=== PATIENT | male | born 1955 | race Caucasian/White ===

== ENCOUNTER → 2017-01-20 | Day surgery (SDC) | payer OTHER ==
[~2017-01-20] VITALS: Ht 172.7 cm; Wt 83.1 kg
[~2017-01-20] MED LIST: ACETAMINOPHEN 325 MG TAB PO PRN; ASPI81TA28 PO; ATOR-22 PO; ATROPINE SULFATE 0.1 MG/ML 5ML SYR IV PRN; CMP/10 PO; DOCU-94 PO; FENO160T4 PO; FENTANYL CITRATE INJ 50 MCG/1 ML 2 ML VIAL ONE; GLC/500 PO; GLIM1TAB2 PO; HEPARIN SOD (PORCINE) 1000 UNIT/ML 10 ML VIAL ONE; LEVO1TAB33 PO; LISI-729 PO; METO25TA3 PO; MIDAZOLAM HCL 1 MG/ML 2ML VIAL ONE; NITROGLYCERIN/D5W 100MCG/ML 20ML SYR ONE; NiCARDipine HCL INJ 2.5 MG/ML 10 ML AMP ONE; ONDA-63 PO; ONDANSETRON INJ 2 MG/ML 2 ML VIAL IV PRN; SODIUM CHLORIDE 0.9% 1000ML 250 ML IV PRN; XLTOPS OPB
[2017-01-20 07:15] VITALS: BP 145/76; PULSE 82; TEMP 36.4; O2SAT 98; Ht 172.7 cm; Wt 83.1 kg
--- NOTE | 2017-01-20 08:17 | History & Physical Bridge Note ---
H&P Re-Evaluation Bridge Note: I have examined the patient, reviewed the History & Physical and in the interval since the performance of the History & Physical I have noted the following changes of clinical significance: Lisinopril added on 01/13/17. Repeat creatinine and potassium WNL today. Otherwise, No changes noted.
--- NOTE | 2017-01-20 09:07 | Procedure Note ---
Pre-Mod Sedation Assessment General Date of Moderate Sedation: Jan 20, 2017. Vital Signs: Vital Signs Past 12 Hours Date Time Temp Pulse Resp B/P Pulse Ox O2 Delivery O2 Flow Rate FiO2 01/20/17 08:55 77 16 117/76 98 Room Air 01/20/17 07:15 36.4 82 16 145/76 98 Room Air Review Cardiovascular: regular rate, rhythm, no edema, no murmur Abdomen: normal bowel sounds, non tender, soft Lungs: lungs clear, normal breath sounds Pre-Sedation Airway Assessment Oral Cavity: WNL Short Thick Neck: No Hx of Sleep Apnea: No Smoking Status: Never Smoker ASA Classification: Class III Procedure Planning Contraindications-for Mod Sed: None Yes Notes The planned sedation has been discussed with the patient and consent obtained. I have identified the patient, determined the appropriateness of sedation and have assessed the patient immediately prior to the procedure. All medicine(s) and interventions are by my order.
--- NOTE | 2017-01-20 09:08 | Procedure Note ---
Post-Mod Sedation Assessment General Date of Moderate Sedation Jan 20, 2017. Vital Signs: Vital Signs Past 12 Hours Date Time Temp Pulse Resp B/P Pulse Ox O2 Delivery O2 Flow Rate FiO2 01/20/17 08:55 77 16 117/76 98 Room Air 01/20/17 07:15 36.4 82 16 145/76 98 Room Air Review - Discharge Criteria Vital Signs Stable: Yes Alert/Oriented/Conversant: Yes Returned to Baseline Mental St: Yes Nausea Absent/Minimal: Yes Pain/Discomfort/Absent/Minimal: Yes Normal/Baseline Respirations: Yes Active Bleeding?: No Pt Received D/C Instructions: Yes Prescriptions Given: None Specific Proced. D/C Criteria Distal Pulses Present (Cardiac: Yes Groin site assessed-Card Cath: N/A Voided Prior To Discharge: N/A Discharged Patients Adult Escort/Transportation: Yes
--- NOTE | 2017-01-20 09:14 | Discharge Instructions ---
Discharge Instructions Procedure Procedure Date: Jan 20, 2017. Reason for Visit: Abnormal Echo, Cardiomyelopathy *Dr Goodwin To Do. Discharge Discharge Date: Jan 20, 2017. Discharge Diagnosis: Non-ischemic cardiomyopathy. Status post right and left cardiac catheterization with coronary angiography. Last Recorded Wt (Kilograms): 83.1 Anesthesia Post Anesthesia Instructions: If you have had General Anesthesia or IV Sedation: * Do not drive today. * Resume driving when surgeon permits. * Do not make important decisions or sign legal documents today. * Call surgeon for: 1. Temperature elevations greater than 101 degrees F. 2. Uncontrollable pain. 3. Excessive bleeding. 4. Persistent nausea and vomiting. 5. Medication intolerance (nausea, vomiting or rash). * For nausea and vomiting use only clear liquids such as: tea, soda, bouillon until nausea subsides, then gradually increase diet as tolerated. * If you have any concerns or questions, call your surgeon's office. If physician is unavailable and it is an emergency, call 911 or go to the nearest emergency room. Instructions Activity Recommendations: limitations as noted below Return to School/Work: with the following limitations Recommended Home Diet: resume previous diet, low cholesterol Allergies: Coded Allergies: No Known Allergies (Unverified , 04/21/15) Provider Instructions ACTIVITY RECOMMENDATIONS: Excess manipulation of the wrist should be avoided for the next 24-48 hours. * No lifting over 2 pounds (approximately a 1/2 gallon of milk) with the utilized arm for 24 hours. * No strenuous activity such as bowling or tennis for 3 days. * Keep the site of the procedure covered with a bandage for 24 hours. *You may shower the day after the procedure. Do not take a tub bath or submerge the puncture site in water for the next 3 days. *Do not operate any motorized equipment for 3 days. SPECIAL CARE INSTRUCTIONS: The site may be slightly bruised and sore following your procedure. Should any of the following occur, contact the DrJoshua who performed your procedure. 1. Redness/inflammation, swelling, chills, or fever, or colored drainage at procedure site within 3-7 days after your procedure. 2. Coldness, discoloration, ongoing numbness, severe pain, or swelling. Expect mild tingling of hand and tenderness at the puncture site for up to three days. If this persists beyond three days, or other symptoms develop, notify the Dr. who performed your procedure. BLEEDING: If the procedure site on your wrist begins to bleed, do not panic 1. Place 1 or 2 fingers firmly just slightly above the insertion site to stop the bleeding. You may be able to feel your pulse as you hold pressure. 2. Lift your finger after 5 minutes to see if the bleeding has stopped. 3. Once the bleeding has stopped, gently wipe the wrist area clean with a bandage. * If the bleeding from your wrist does not stop after 10 minutes, or if there is a large amount of bleeding or spurting, call 911 (do not drive yourself to the hospital). SKIN IRRITATION: * You may experience some redness and/or swelling in the area where radiation was administered. If any skin irritation occurs, please contact your family physician. FOLLOW UP VISIT: Keep any scheduled doctor appointments. Follow Up Follow-up with: Dr. Goodwin in 2-4 weeks. PCP as scheduled. Dr. Marks as scheduled. Grisel Cummings Recommendations: Call your doctor if: * Temperature above 101 degrees * Pain not relieved by pain medicine ordered * There is increased drainage or redness from any incision * You have any unanswered questions or concerns. Your Doctors Instructions noted above were prepared by provider Navin Goodwin. Patient Signature Section: Patient Instructions Signature Page Duane Landon Patient (or Guardian) Signature/Date: I have read and understand the instructions given to me by my caregivers. Caregiver/RN/Doctor Signature/Date: The above-named patient and/or guardian has received patient instructions on this date. + Original Patient Signature Page (only) stays with chart. Please make copy for patient.
[2017-01-20 09:19] LABS: ISTAT ARTERIAL BLOOD GAS HCO3 26 meq/L (19-24); ISTAT ARTERIAL BLOOD GAS PCO2 42 mmHg (35-46); ISTAT ARTERIAL BLOOD GAS PO2 < 32 mmHg (80-95); ISTAT CARBON DIOXIDE 27 mEq/l (24-31)
[2017-01-20 09:19] LABS: ISTAT ARTERIAL BLOOD GAS HCO3 23 meq/L (19-24); ISTAT ARTERIAL BLOOD GAS PCO2 39 mmHg (35-46); ISTAT ARTERIAL BLOOD GAS PO2 < 32 mmHg (80-95); ISTAT ARTERIAL BLOOD GAS pH 7.38 (7.35-7.45); ISTAT CARBON DIOXIDE 24 mEq/l (24-31)
[2017-01-20 09:19] LABS: ISTAT CREATININE 0.8 mg/dl (0.6-1.3); ISTAT HEMOGLOBIN 14.6 g/dl (14.0-18.0); ISTAT IONIZED CALCIUM 1.21 mmol/l (1.12-1.32)
[2017-01-20 09:20] LABS: ISTAT ARTERIAL BLOOD GAS HCO3 23 meq/L (19-24); ISTAT ARTERIAL BLOOD GAS PCO2 33 mmHg (35-46); ISTAT ARTERIAL BLOOD GAS PO2 69 mmHg (80-95); ISTAT ARTERIAL BLOOD GAS pH 7.44 (7.35-7.45); ISTAT CARBON DIOXIDE 24 mEq/l (24-31)
--- NOTE | 2017-01-20 09:35 | Cardiac Catheterization ---
Procedure Note Procedure Date Jan 20, 2017. Pre-Procedure Diagnosis Cardiomyopathy AUC Score 8 Post-Procedure Diagnosis Mild CAD (with significant ostial D1 stenosis (small vessel)), Normal Intracardiac Pressures Procedure(s) Performed Coronary Angiography, Left Heart Cath (Start time 825, End time 854), Right Heart Cath [place] Dr. Goodwin Fashion Artist(s) Junior VISUAL MERCHANDISING COORDINATOR Estimated Blood Loss 5cc Medication(s) Heparin, Nicardipine, Nitroglycerin, Versed (1mg), Lidocaine 1% Summary of Findings Mild non-obstructive CAD. Normal pulmonary arterial pressures. Normal LV pressure. Hemodynamics Rest Ao: 109/35/73 Final Ao: 118/72/93 LV: 113/7/9 RA: 3 RV: 25/-2/3 PA: 27/9/17 PW: 9 Cardiac Index 2.4 (thermo) Qp/Qs = 1.0 Recommendations Medical therapy and/or Counseling Specimens None Radiation Exposure (mGy) 1044 Contrast (mls) 50 Procedural Complication(s) None Disposition Stonecutter Hand Holding/Recovery ACC Data Cardiac Status Clinical evaluation leading to the procedure CAD Presntation: No Sxs, no angina Anginal Classification: No symptoms Heart Failure: NYHA Class: CCS I Coronary Anatomy Dominant: Left Left Main (% Stenosis): Normal LAD (% Stenosis): Proximal (30%), Mid (30%), Distal (diffuse 10-20%) D1 (% Stenosis): Ostial (small vessel with 70% ostial), Proximal (0%), Mid (0%) , Distal (0%) D2 (% Stenosis): Ostial (small vessel with diffuse mild luminal irregularities (10%)) D3 (% Stenosis): Ostial (30% (small vessel)), Proximal (10%), Mid (0%), Distal (0%) Circumflex (% Stenosis): Ostial (0%), Proximal (10%), Mid (10%), Distal (0%) OM1 (% Stenosis): Normal L PL1 (% Stenosis): Ostial (0%), Proximal (30%), Mid (20%), Distal (30%) L PL2 (% Stenosis): Ostial (0%), Proximal (20%), Mid (10%), Distal (10%) L PDA (% Stenosis): Normal RCA (% Stenosis): Normal (Moderate size, nondominant) Ramus (% Stenosis): Normal Diagnostic Status: Elective Closure Device Percutaneous Entry Location: Radial Closure Device: Radial Band Recommendations: Medical therapy and/or Counseling Intraprocedure Events Significant Dissection: No Perforation: No
[2017-01-20 11:30] VITALS: BP 125/76; PULSE 70; O2SAT 97
== END | disposition home or self-care (01) ==
LOC: C.CATH 06:48
PROVIDERS: ATTEND Internal Medicine Cardiovascular Disease
DX: I42.9 Cardiomyopathy, unspecified (principal); I25.10 Atherosclerotic heart disease of native coronary artery without angina pectoris; C18.9 Malignant neoplasm of colon, unspecified; E11.9 Type 2 diabetes mellitus without complications; C78.7 Secondary malignant neoplasm of liver and intrahepatic bile duct; H40.9 Unspecified glaucoma; D50.9 Iron deficiency anemia, unspecified

== ENCOUNTER 2017-10-06 15:17 | Inpatient (IN) | payer OTHER ==
[~2017-10-06] VITALS: Ht 175.3 cm; Wt 80.1 kg
[~2017-10-06 15:17] MED LIST changes: -ACETAMINOPHEN 325 MG TAB PO PRN; -ATROPINE SULFATE 0.1 MG/ML 5ML SYR IV PRN; -FENTANYL CITRATE INJ 50 MCG/1 ML 2 ML VIAL ONE; -HEPARIN SOD (PORCINE) 1000 UNIT/ML 10 ML VIAL ONE; -LEVO1TAB33 PO; -MIDAZOLAM HCL 1 MG/ML 2ML VIAL ONE; -NITROGLYCERIN/D5W 100MCG/ML 20ML SYR ONE; -NiCARDipine HCL INJ 2.5 MG/ML 10 ML AMP ONE; -ONDANSETRON INJ 2 MG/ML 2 ML VIAL IV PRN; -SODIUM CHLORIDE 0.9% 1000ML 250 ML IV PRN
[2017-10-06 16:20] LABS: BASO % 0.3 %; BASO ABS # 0.04 K/uL (0-0.2); COMPLETE YES; EOS % 1.3 %; HEMATOCRIT 37.3 % (42-52); IG% 0.4 %; LYMPH % 15.9 %; LYMPH ABS # 2.02 K/uL (1.2-3.4); MEAN CELL VOLUME 84.4 fL (80-100); MEAN CORPUSCULAR HEMOGLOBIN 27.1 pg (25-34); MEAN CORPUSCULAR HGB CONC 32.2 g/dl (32-36); MEAN PLATELET VOLUME 9.2 fL (7.4-10.4); NEUT % 74.1 %; PLATELET COUNT 275 K/uL (130-400); RED BLOOD COUNT 4.42 M/uL (4.7-6.1)
--- NOTE | 2017-10-06 16:28 | DIAGNOSTIC IMAGING REPORT ---
CHEST ONE VIEW PORTABLE HISTORY: Cough. Right flank pain, liver cancer, CHF COMPARISON: Chest 09/29/2015. FINDINGS: No pneumothorax. Stable blunting of the costophrenic sulci. Low lung findings with bibasilar linear densities. This is also similar to the prior study and therefore favors subsegmental atelectasis are scarring. The heart remains mildly enlarged. The upper lung zones are clear. Emphysema. Left subclavian Port-A-Cath terminates in the SVC. IMPRESSION: 1. Stable mild cartilage. 2. Low lung volumes with bibasilar linear densities. This is similar to the prior study and favors subsegmental atelectasis/scarring. Electronically signed by: Tj Benjamin M.D. 10/06/2017 4:26 PM Dictated Date/Time: 10/06/2017 4:25 PM
[2017-10-06 16:36] LABS: INR 1.1 (0.9-1.1); PARTIAL THROMBOPLASTIN RATIO 1.1; PROTHROMBIN TIME (PATIENT) 11.5 SECONDS (9.0-12.0)
[2017-10-06 16:44] LABS: ALT/SGPT 36 U/L (12-78); AST/SGOT 47 U/L (15-37); BLOOD UREA NITROGEN 14 mg/dl (7-18); BUN/CREATININE RATIO 14.6 (10-20); CALCIUM 8.8 mg/dl (8.5-10.1); CARBON DIOXIDE 23 mmol/L (21-32); CHLORIDE 102 mmol/L (98-107); CREATININE 0.98 mg/dl (0.60-1.40); GLUCOSE 117 mg/dl (70-99); MAGNESIUM 2.1 mg/dl (1.8-2.4); POTASSIUM 4.2 mmol/L (3.5-5.1); SODIUM 134 mmol/L (136-145)
[2017-10-06 16:49] LABS: ALKALINE PHOSPHATASE 411 U/L (45-117)
[2017-10-06] MEDS ORDERED: HYDROmorphone INJ 1 MG/ML SYR IV STA (17:48)
[2017-10-06] MEDS ORDERED: SODIUM CHLORIDE 0.9% 500ML 500 ML IV STA (17:48)
[2017-10-06] MEDS ORDERED: OPTIRAY 320 IV PRN (18:00)
--- NOTE | 2017-10-06 18:43 | DIAGNOSTIC IMAGING REPORT ---
(CHEST FOR PE) ANGIO WITH CLINICAL HISTORY: 61 years-old Male presenting with ^Right chest pain with breathing, Liver CA. TECHNIQUE: Multidetector CT angiography of the chest was performed after administration of intravenous contrast. 3-D volumetric and/or maximum intensity projection (MIP) images were subsequently reconstructed for review. IV contrast: 95 mL of Optiray 320. A dose lowering technique was used consistent with the principles of ALARA (as low as reasonably achievable). COMPARISON: 08/29/2015. CT DOSE (mGy.cm): The estimated cumulative dose is 535.86 mGy.cm. FINDINGS: Winter Intern topogram: Unremarkable. Pulmonary vasculature: The study is suboptimal for the assessment of the pulmonary vascular tree secondary to respiratory motion artifact limiting evaluation of segmental and subsegmental pulmonary arteries. Allowing for this limitation, no central filling defect. Main pulmonary artery is not enlarged. No flattening of the interventricular septum. No intracardiac intracardiac filling defect. No reflux of contrast into the hepatic veins. Remaining chest: On soft tissue windows, normal thyroid and thoracic inlet. No axillary, supraclavicular, hilar, or mediastinal lymphadenopathy. Normal aorta. Normal heart size. No pericardial or pleural effusion. Nodular contour of the liver suggests underlying cirrhosis. On lung windows, extensive bandlike opacities at the lung bases with volume loss in the bilateral lower lobes. Lower lobe predominant bronchial wall thickening also evident. However, airways remain patent. These changes are more extensive than on prior exam. On bone windows, exaggerated thoracic kyphosis and degenerative changes of the spine. IMPRESSION: 1. Allowing for degradation from respiratory motion artifact, no central pulmonary embolus. Evaluation of segmental and subsegmental pulmonary arteries limited. 2. Extensive bandlike opacities dependently in the lower lobes with lower lobe volume loss and lower lobe predominant bronchial wall thickening. This could suggest atelectasis and/or scarring, though an element of chronic aspiration cannot be excluded. 3. Suggestion of cirrhosis. Electronically signed by: Александр Pitt M.D. 10/06/2017 6:42 PM Dictated Date/Time: 10/06/2017 6:34 PM
[2017-10-06] MEDS ORDERED: PIPERACILLIN/TAZOBACTAM 4.5 GM/100ML D5W IV STA (19:08)
--- NOTE | 2017-10-06 19:39 | EMERGENCY ROOM VISIT NOTE ---
History Report prepared by Johnathonibreynaldo: Bertin Blum Under the Supervision of: Dr. Luann Hanley M.D. First contact with patient: 15:23 Chief Complaint: COUGH Stated Complaint: COUGH, LT SIDE PAIN History of Present Illness The patient is a 61 year old male who presents to the Emergency Room with complaints of a persistent cough beginning two months ago. He states that he developed constant left back pain which began today. He rates his pain as a 5/ 10. The patient also notes that his urine was very dark colored today. He also complains of chest pain, shortness of breath, and generalized weakness. He denies fevers, abdominal pain, vomiting, or black or bloody stool. The patient has a history of stage 4 liver cancer and is not receiving treatment due to the severity of the cancer. He also has a history of diabetes and partial colectomy s/p colon cancer. Source of History: patient Onset: Two months ago Quality: other (cough) Timing: other (persistent) Associated Symptoms: + chest pain, + SOB, + back pain (constant, 5/10 in severity, left sided), + weakness (generalized), No fevers, No vomiting, No abdominal pain, No melena, No hematochezia Review of Systems See HPI for pertinent positives & negatives. A total of 10 systems reviewed and were otherwise negative. Past Medical & Surgical Medical Problems: (1) Colon cancer (2) Cough (3) Diabetes (4) Left lower lobe pneumonia (5) Liver cancer, primary, with metastasis from liver to other site (6) Sepsis (7) Vomiting Family History Cancer Social History Smoking Status: Never Smoker Marital Status: single Occupation Status: retired Current/Historical Medications Scheduled Aspirin (Aspirin Ec), 81 MG PO DAILY Atorvastatin (Lipitor), 20 MG PO DAILY Glimepiride (Glimepiride), 1 TAB PO DAILY Metformin Hcl (Glucophage), 500 MG PO BID Metoprolol Succ (Toprol Xl) (Toprol-Xl), 25 MG PO DAILY Miscellaneous Medications Lisinopril (Zestril), 5 MG PO Allergies Coded Allergies: Oxaliplatin (Unverified Allergy, Unknown, HIVES, 10/06/17) Physical Exam Vital Signs Date Time Temp Pulse Resp B/P (MAP) Pulse Ox O2 Delivery O2 Flow Rate FiO2 10/06/17 19:02 102 128/86 93 Room Air 10/06/17 17:48 112 18 120/84 98 Room Air 10/06/17 16:32 104 10/06/17 15:20 36.5 106 18 130/87 95 Room Air Physical Exam Vital signs reviewed. General: Chronically ill-appearing male, in no significant distress. HEENT: No scleral icterus, PERRLA, neck supple. Atraumatic. Cardiovascular: Regular rate and rhythm, no extra sounds. Pulmonary: Clear to auscultation bilaterally, normal work of breathing. Abdomen: Soft, nondistended, positive bowel sounds. Mild tenderness to palpation of the RUQ. Musculoskeletal: Atraumatic, no peripheral edema. Positive right CVA tenderness. Neurologic: Patient awake alert and oriented x 3. Skin: Warm, dry. 6 cm of erythema to the upper lumbar back (heating pad?). No appreciable rash or vesicular lesions. Medical Decision & Procedures ER Provider Diagnostic Interpretation: Radiology results as stated below per my review and radiologist interpretation: CHEST ONE VIEW PORTABLE FINDINGS: No pneumothorax. Stable blunting of the costophrenic sulci. Low lung findings with bibasilar linear densities. This is also similar to the prior study and therefore favors subsegmental atelectasis are scarring. The heart remains mildly enlarged. The upper lung zones are clear. Emphysema. Left subclavian Port-A-Cath terminates in the SVC. IMPRESSION: 1. Stable mild cartilage. 2. Low lung volumes with bibasilar linear densities. This is similar to the prior study and favors subsegmental atelectasis/scarring. Electronically signed by: Tj Benjamin M.D. 10/06/2017 4:26 PM (CHEST FOR PE) ANGIO WITH FINDINGS: Page Makeup System Operator topogram: Unremarkable. Pulmonary vasculature: The study is suboptimal for the assessment of the pulmonary vascular tree secondary to respiratory motion artifact limiting evaluation of segmental and subsegmental pulmonary arteries. Allowing for this limitation, no central filling defect. Main pulmonary artery is not enlarged. No flattening of the interventricular septum. No intracardiac intracardiac filling defect. No reflux of contrast into the hepatic veins. Remaining chest: On soft tissue windows, normal thyroid and thoracic inlet. No axillary, supraclavicular, hilar, or mediastinal lymphadenopathy. Normal aorta. Normal heart size. No pericardial or pleural effusion. Nodular contour of the liver suggests underlying cirrhosis. On lung windows, extensive bandlike opacities at the lung bases with volume loss in the bilateral lower lobes. Lower lobe predominant bronchial wall thickening also evident. However, airways remain patent. These changes are more extensive than on prior exam. On bone windows, exaggerated thoracic kyphosis and degenerative changes of the spine. IMPRESSION: 1. Allowing for degradation from respiratory motion artifact, no central pulmonary embolus. Evaluation of segmental and subsegmental pulmonary arteries limited. 2. Extensive bandlike opacities dependently in the lower lobes with lower lobe volume loss and lower lobe predominant bronchial wall thickening. This could suggest atelectasis and/or scarring, though an element of chronic aspiration cannot be excluded. 3. Suggestion of cirrhosis. Electronically signed by: Александр Pitt M.D. 10/06/2017 6:42 PM Laboratory Results Test 10/06/17 16:09 10/06/17 16:23 Prothrombin Time 11.5 SECONDS (9.0-12.0) Prothromb Time International Ratio 1.1 (0.9-1.1) Activated Partial Thromboplast Time 29.2 SECONDS (21.0-31.0) Partial Thromboplastin Ratio 1.1 Magnesium Level 2.1 mg/dl (1.8-2.4) Total Bilirubin 0.6 mg/dl (0.2-1) Direct Bilirubin 0.2 mg/dl (0-0.2) Aspartate Amino Transf (AST/SGOT) 47 U/L (15-37) Alanine Aminotransferase (ALT/SGPT) 36 U/L (12-78) Alkaline Phosphatase 411 U/L (45-117) Total Creatine Kinase 54 U/L (39-308) Creatine Kinase MB < 0.5 ng/ml (0.5-3.6) Creatine Kinase MB Ratio (0-3.0) Troponin I < 0.015 ng/ml (0-0.045) Pro-B-Type Natriuretic Peptide 58 pg/ml (0-900) Total Protein 7.6 gm/dl (6.4-8.2) Albumin 2.9 gm/dl (3.4-5.0) Bedside Troponin I < 0.030 ng/ml (0-0.045) Laboratory results per my review. Medications Administered Medications (Trade) Dose Ordered Sig/Anabell Route Start Time Stop Time Status Last Admin Dose Admin Hydromorphone HCl (Dilaudid Inj) 1 mg NOW STAT IV 10/06/17 17:48 10/06/17 17:49 DC 10/06/17 18:00 1 MG Sodium Chloride 500 ml @ 999 mls/hr Q31M STAT IV 10/06/17 17:48 10/06/17 18:18 DC 10/06/17 18:47 999 MLS/HR Piperacillin Sod/ Tazobactam Sod (Zosyn Iv) 4.5 gm NOW STAT IV 10/06/17 19:08 10/06/17 19:09 DC 10/06/17 19:23 4.5 GM ECG Indication: back/shoulder pain Rate (beats per minute): 106 Rhythm: sinus tachycardia Findings: no acute ischemic change, left axis deviation, other (Likely previous anterior infarct) ED Course 1526: Past medical records reviewed. The patient was evaluated in room A4A. A complete history and physical examination was performed. 1747: Ordered Sodium Chloride 500 ml @ 999 mls/hr IV, Dilaudid Inj 1 mg IV. 1907: Ordered Zosyn 4.5 gm IV. 1932: Upon reevaluation, the patient is resting comfortably. I discussed laboratory and radiographic results with him. He verbalized agreement of the treatment plan. The patient will be evaluated for further management and care. Medical Decision The patient is a 61 year old male who presents to the ED with complaints of cough and upper back pain. Differentials include pleural effusion, pneumonia, cancer related pain, PE, and shingles. This patient was evaluated and appeared to be in no significant distress. The patient was hydrated with normal saline solution and laboratory work was drawn. Lab work is notable for mild leukocytosis. CT scan of the chest was performed and reveals no evidence of pulmonary embolus however there is a lung consolidation noted bilateral bases. Given IV Dilaudid for his pain. Blood cultures were obtained and the patient was medicated with IV Zosyn for the possibility of aspiration. Other than this above findings, there is no clear etiology for the patient's pain. Due to his metastatic cancer, pain and above findings, patient will be evaluated by the hospitalist service for further management. Medication Reconcilliation Current Medication List: was personally reviewed by wa Blood Pressure Screening Patient's blood pressure: Normal blood pressure Blood pressure disposition: Elevated BP felt to be situational Consults Time Called: 1924 Consulting Physician: Dr. Jana Armstrong Returned Call: 1932 I reviewed the patient's case with Dr. Bates. Audrey will evaluate the patient for further management. Impression Primary Impression: Pneumonia Additional Impression: Liver cancer, primary, with metastasis from liver to other site Scribe Attestation The scribe's documentation has been prepared under my direction and personally reviewed by me in its entirety. I confirm that the note above accurately reflects all work, treatment, procedures, and medical decision making performed by me. Departure Information Dispostion Being Evaluated By Hospitalist Referrals No Doctor, Assigned (PCP) Patient Instructions [facility] Problem Qualifiers
[2017-10-06] MEDS ORDERED: KETOROLAC TROMETHAMINE 30 MG/ML VIAL IV STA (20:26)
[2017-10-06] MEDS ORDERED: LEVALBUTEROL/IPRATROPIUM NEB INH STA (20:46)
[2017-10-06] MEDS ORDERED: BENZONATATE 100MG CAP PO PRN (21:00)
[2017-10-06] MEDS ORDERED: LEVALBUTEROL/IPRATROPIUM NEB INH PRN (21:00)
[2017-10-06] MEDS ORDERED: GLUCOSE 40% GEL 15 GM TUBE PO PRN (21:00)
[2017-10-06] MEDS ORDERED: ONDANSETRON INJ 2 MG/ML 2 ML VIAL IV PRN (21:00)
[2017-10-06] MEDS ORDERED: DEXTROSE 50% 50 ML SYR IV PRN (21:00)
[2017-10-06] MEDS ORDERED: GLUCAGON FOR INJ 1 MG VIAL SQ PRN (21:00)
[2017-10-06] MEDS ORDERED: GLUCOSE 10 TABS/TUBE PO PRN (21:00)
[2017-10-06] MEDS ORDERED: LORAZEPAM 2 MG/ML 1 ML VIAL IV PRN (21:00)
[2017-10-06] MEDS ORDERED: IPRATROPIUM BROMIDE NEB SOLN 0.02% 2.5 ML VIAL INH STA (21:13)
[2017-10-06] MEDS ORDERED: LEVALBUTEROL 1.25MG/0.5ML NEB INH STA (21:13)
[2017-10-06] MEDS ORDERED: BENZONATATE 100MG CAP PO STA (21:14)
[2017-10-06] MEDS ORDERED: LEVALBUTEROL 1.25MG/0.5ML NEB INH PRN (21:15)
[2017-10-06] MEDS ORDERED: IPRATROPIUM BROMIDE NEB SOLN 0.02% 2.5 ML VIAL INH PRN (21:15)
[2017-10-06] MEDS ORDERED: METOPROLOL SUCC 50MG EXT REL TAB PO STA (21:17)
--- NOTE | 2017-10-06 21:25 | DIAGNOSTIC IMAGING REPORT ---
ABD/PELVIS NO IV OR ORAL CONT CLINICAL HISTORY: 61 years-old Male presenting with R flank pain. TECHNIQUE: Multidetector CT of the abdomen and pelvis was performed without the use of intravenous contrast. IV contrast: None. A dose lowering technique was used consistent with the principles of ALARA (as low as reasonably achievable). COMPARISON: None. CT DOSE (mGy.cm): The estimated cumulative dose is 460.09 mGy.cm. FINDINGS: Senior Operations Analyst topogram: Excreted contrast in the urinary bladder. Lung bases: Extensive dependent peribronchovascular consolidation in the lower lobes, left greater than right. Coronary artery calcification. Normal heart size. No pericardial or pleural effusion. Few subcentimeter axillary lymph nodes noted most prominently on the left. Liver: Nodular contour of the liver suggests underlying cirrhosis. Biliary: No gross biliary ductal dilatation allowing for noncontrast technique. Normal gallbladder. Pancreas: Normal noncontrast appearance. Spleen: Normal noncontrast appearance. Splenule noted. Adrenal glands: Normal noncontrast appearance. Kidneys and ureters: Kidneys demonstrate excretion of prior intravenous contrast bilaterally, which limits evaluation for renal calculi. Within this limitation, no calculi are evident. No hydronephrosis. Normal ureters. Bladder: Excreted contrast noted in the urinary bladder with a urinary diverticulum contained within the right inguinal canal. Pelvic organs: Prostate enlargement likely secondary to benign prostatic hyperplasia. Bowel: Moderate stool burden in the rectum. Moderate stool burden also noted in the transverse colon with postsurgical changes of right hemicolectomy. The ileocolic anastomosis in the anterior mid abdomen appears widely patent. No bowel obstruction. Distal small bowel is contained within multiple adjacent midline ventral incisional hernias. No associated small bowel wall thickening or fluid to suggest strangulation. Peritoneal cavity: No free fluid or intraperitoneal gas. Lymph nodes: No gross lymphadenopathy allowing for noncontrast technique. Vasculature: Atherosclerosis of the normal caliber abdominal aorta. Abdominal wall: Multiple midline ventral hernias as detailed above. Right inguinal hernia. Musculoskeletal: Normal. IMPRESSION: 1. Allowing for the presence of excreted contrast in the renal collecting systems, no evidence of nephrolithiasis. No hydronephrosis. 2. Postsurgical changes of right hemicolectomy with grossly patent ileocolic anastomosis. 3. Multiple midline ventral hernias containing small bowel. No bowel obstruction. 4. Bladder containing right inguinal hernia. 5. Suspected cirrhosis. 6. Extensive peribronchovascular dependent consolidation in the lower lobes, left greater than right. This could represent extensive atelectasis or aspiration. Electronically signed by: Александр Pitt M.D. 10/06/2017 9:24 PM Dictated Date/Time: 10/06/2017 9:15 PM
[2017-10-06] MEDS ORDERED: CLINDAMYCIN CONSULT ACTIVE PRN ×2 (22:00)
[2017-10-06 22:13] VITALS: BP 127/84; PULSE 100; TEMP 36.9; O2SAT 98
[2017-10-06 22:43] VITALS: BP 127/84; PULSE 100; TEMP 36.9; O2SAT 98; Ht 175.3 cm; Wt 80.1 kg
[2017-10-06] MEDS ORDERED: PNEUMOCOCCAL ADMINISTRATION CHARGE ONE (23:15)
[2017-10-06] MEDS ORDERED: INFLUENZA ADMINISTRATION CHARGE ONE (23:15)
[2017-10-06] MEDS ORDERED: PNEUMOCOCCAL POLYSACCHARIDES 25 MCG/0.5 ML VIAL/SYR IM. ONE (23:15)
[2017-10-06] MEDS ORDERED: INFLUENZA VIRUS QUAD VACCINE 0.5 ML SYR IM. ONE (23:15)
[2017-10-07] VITALS (8 sets, daily range): BP systolic 94–123; BP diastolic 67–82; PULSE 87–103; TEMP 36.6–36.8; O2SAT 92–96
[2017-10-07] MEDS: INSULIN ASPART 100 UNITS/ML 3 ML PEN SC SCH ×5 (01:02→21:00)
[2017-10-07] MEDS: CLINDAMYCIN HCL 150 MG CAP PO SCH ×5 (01:36→22:00)
[2017-10-07] MEDS: TRAMADOL HCL 50 MG TAB PO PRN ×2 (01:37→17:12)
[2017-10-07] MEDS: ENOXAPARIN 40 MG/0.4 ML SYR SQ SCH ×2 (02:58→22:01)
[2017-10-07] MEDS: GUAIFENESIN 600 MG TABCR PO SCH ×3 (03:01→22:01)
--- NOTE | 2017-10-07 03:46 | HISTORY & PHYSICAL EXAMINATION ---
DATE OF ADMISSION: 10/06/2017 PRIMARY CARE DOCTOR: Dr. Maki CHIEF COMPLAINT: Right flank pain, cough, and shortness of breath. HISTORY OF PRESENT ILLNESS: History obtained from patient and records. Medical history significant for metastatic colon cancer sp surgery and chemotherapy, hx tumor cirrhosis, chronic anemia (baseline hemoglobin of 12), History of chronic systolic heart failure secondary to non-ischemic cardiomyopathy (chemotherapy) EF 35-40% in April 2017. hypertension, GERD, DM2 on oral medications. Two months hx of dry cough sx, occasional coughing with meals and water. Central achy chest pain today with shortness of breath and achy right flank pain. Patient denies hematuria.. No fever, some chills. CT of chest showed no central PE, extensive bilateral opacities on the lower lobes with predominant bronchial wall thickening, atelectasis vs possible chronic aspiration. cirrhosis. Patient received Zosyn in the Emergency Room. MEDICAL HISTORY: As above. A 2D echo from April 2017 showed moderate diffuse LV hypokinesis, concentric LVH, EF 35%-40%, abnormal LV diastolic dysfunction, PASP of 25-30 mm. Most recent [facility] [place] Oncology visit was on 09/17/2017. As per note, limited options for progressive disease due to cardiac dysfunction. Consideration for home hospice if condition deteriorates. PAST SURGICAL HISTORY: He has had A-port placement, colectomy. HOME MEDICATIONS: Include aspirin, Lipitor, glimepiride, Zestril, metformin, Toprol. ALLERGIES: ALLERGIC TO OXALIPLATIN. FAMILY HISTORY: Colon cancer. PERSONAL AND SOCIAL HISTORY: Nonsmoker. No chronic intake of alcoholic beverages. Lives alone, brother lives close by. REVIEW OF SYSTEMS: As per HPI, all 10 systems reviewed, all others are negative. PHYSICAL EXAMINATION: VITAL SIGNS: Blood pressure was noted to be 140/80, pulse rate 106, RR 18, temperature 37, sats 95 on room air. GENERAL: Noted to be uncomfortable. No respiratory distress. SKIN: Pallor, warm. HEENT: Pale palpebral conjunctivae. No ptosis. Dry buccal mucosa. NECK: Supple. No tenderness. CHEST: Decreased breath sounds. No tenderness. HEART: Tachycardic. No murmur. ABDOMEN: Soft. NT BACK: Tender right flank. EXTREMITIES: No edema, no tenderness. No gross deformity. NEUROLOGIC: Coherent. No gross focality. LABORATORIES: Hemoglobin 12, hematocrit 37.3, white cell count 12.7, platelets 275. Sodium 136, potassium 4.2, chloride 102, CO2 28, BUN 40, creatinine 0.9, glucose 117. Lactic acid was 1.1. trop [address] abdomen and pelvis showed no hydronephrosis, postsurgical changes, right hemicolectomy, patent ileocolic anastomosis, multiple midline ventral hernias, cirrhosis, extensive peribronchovascular consolidation lower lobes. EKG as per my interpretation : rate 110, sinus tach cardia. LAD, LAFB, some fusion complexes on the septal leads. ASSESSMENT: 1. Sepsis secondary to aspiration pneumonitis. 2. Hypertension, stable. 3. DM2, on oral meds well controlled as of recent outpatient hemoglobin A1c of 6.6 last August 2017. 4. Metastatic colon cancer status post surgery/chemotherapy disease progression as per outpatient records 5. hx tumor cirrhosis 6. Chronic systolic heart failure secondary to non-ischemic cardiomyopathy Patient euvolemic to dry 7. Chronic anemia, hemoglobin baseline. PLAN: GMF CS Clindamycin course Swallow eval aspiration precautions DVT prophylaxis, Lovenox subQ. Full code. MTDD
[2017-10-07 06:52] LABS: BASO % 0.5 %; BASO ABS # 0.05 K/uL (0-0.2); COMPLETE YES; EOS % 1.8 %; IG% 0.4 %; LYMPH % 15.4 %; MEAN CELL VOLUME 84.9 fL (80-100); MEAN CORPUSCULAR HEMOGLOBIN 27.1 pg (25-34); MEAN CORPUSCULAR HGB CONC 31.9 g/dl (32-36); MEAN PLATELET VOLUME 10.1 fL (7.4-10.4); MONO % 10.1 %; NEUT % 71.8 %; PLATELET COUNT 257 K/uL (130-400); RED BLOOD COUNT 4.24 M/uL (4.7-6.1); WHITE BLOOD COUNT 10.41 K/uL (4.8-10.8)
[2017-10-07 07:28] LABS: BUN/CREATININE RATIO 16.3 (10-20); CALCIUM 8.7 mg/dl (8.5-10.1); CREATININE 0.93 mg/dl (0.60-1.40); POTASSIUM 4.1 mmol/L (3.5-5.1)
[2017-10-07] MEDS ORDERED: CONSULT PHARMACY SCH (08:00)
[2017-10-07] MEDS: ASPIRIN 81 MG ECTAB PO SCH (08:19)
[2017-10-07] MEDS: ATORVASTATIN 20 MG TAB PO SCH (08:20)
[2017-10-07] MEDS: LACTOBACILLUS ACIDOPHILUS (FLORANEX) TAB PO SCH ×3 (08:20→17:11)
[2017-10-07] MEDS: LISINOPRIL 5 MG TAB PO SCH (08:20)
[2017-10-07] MEDS ORDERED: METOPROLOL SUCC 25MG EXT REL TAB PO SCH (09:00)
[2017-10-07 11:05] LABS: INFLUENZA A PCR Neg for Influ A (NEG); INFLUENZA B PCR Neg for Influ B (NEG)
[2017-10-07] MEDS ORDERED: LIDODERM (LIDOCAINE) PATCH 5% TD ONE (16:12)
[2017-10-07] MEDS: MoRPHine SULFATE 4 MG/ML 1 ML CARP\\VIAL IV PRN (19:31)
[2017-10-07] MEDS: METOPROLOL SUCC 25MG EXT REL TAB PO SCH (22:00)
[2017-10-08] MEDS: CLINDAMYCIN HCL 150 MG CAP PO SCH (06:06)
[2017-10-08] MEDS: MoRPHine SULFATE 4 MG/ML 1 ML CARP\\VIAL IV PRN (06:11)
[2017-10-08 06:41] LABS: URINE APPEARANCE CLEAR (CLEAR); URINE BILIRUBIN NEG (NEG); URINE COLOR DK YELLOW; URINE NITRITE NEG (NEG); URINE SPECIFIC GRAVITY 1.029 (1.000-1.030); UROBILINOGEN NEG (NEG); ZZUR CULT IF INDIC CLEAN CATCH NO
[2017-10-08 06:46] LABS: MANUAL MICROSCOPIC REQUIRED? NO; REVIEW REQ? NO
[2017-10-08 08:00] VITALS: BP 98/65; PULSE 80; TEMP 36.9; O2SAT 95
[2017-10-08] MEDS: LISINOPRIL 5 MG TAB PO SCH (08:00)
[2017-10-08] MEDS: LACTOBACILLUS ACIDOPHILUS (FLORANEX) TAB PO SCH ×3 (08:15→16:54)
[2017-10-08] MEDS: LIDODERM (LIDOCAINE) PATCH 5% TD SCH (08:15)
[2017-10-08] MEDS: ATORVASTATIN 20 MG TAB PO SCH (08:16)
[2017-10-08] MEDS: GUAIFENESIN 600 MG TABCR PO SCH ×2 (08:16→19:40)
[2017-10-08] MEDS: ASPIRIN 81 MG ECTAB PO SCH (08:16)
[2017-10-08] MEDS: INSULIN ASPART 100 UNITS/ML 3 ML PEN SC SCH ×4 (08:19→20:36)
[2017-10-08 08:30] VITALS: O2SAT 95
[2017-10-08 08:43] VITALS: O2SAT 95
[2017-10-08] MEDS ORDERED: KETOROLAC TROMETHAMINE 15 MG/ML VIAL IV PRN (11:15)
[2017-10-08] MEDS ORDERED: LEVOFLOXACIN 500 MG TAB PO ONE (11:37)
[2017-10-08 11:53] LABS: BASO % 0.2 %; BASO ABS # 0.02 K/uL (0-0.2); COMPLETE YES; EOS % 2.2 %; HEMATOCRIT 38.2 % (42-52); IG% 0.3 %; LYMPH % 11.3 %; LYMPH ABS # 1.11 K/uL (1.2-3.4); MEAN CELL VOLUME 85.5 fL (80-100); MEAN CORPUSCULAR HEMOGLOBIN 27.1 pg (25-34); MEAN CORPUSCULAR HGB CONC 31.7 g/dl (32-36); MEAN PLATELET VOLUME 9.7 fL (7.4-10.4); MONO % 10.6 %; NEUT % 75.4 %; PLATELET COUNT 295 K/uL (130-400); RED BLOOD COUNT 4.47 M/uL (4.7-6.1); WHITE BLOOD COUNT 9.78 K/uL (4.8-10.8)
[2017-10-08 12:11] LABS: BUN/CREATININE RATIO 20.8 (10-20); CALCIUM 8.7 mg/dl (8.5-10.1); CREATININE 1.23 mg/dl (0.60-1.40); POTASSIUM 4.1 mmol/L (3.5-5.1)
[2017-10-08] MEDS: TRAMADOL HCL 50 MG TAB PO PRN (12:13)
--- NOTE | 2017-10-08 13:48 | DIAGNOSTIC IMAGING REPORT ---
(LIVER) ABDOMEN LIMITED CLINICAL HISTORY: r/o cholecystitis abnormal CT exam TECHNIQUE: Ultrasound COMPARISON STUDY: CT abdomen dated 10/06/2017 FINDINGS: Moderately heterogeneous liver. Components of fatty infiltration and potentially early cirrhotic change. And appendix are normal. Common bile duct 4 mm. Contracted gallbladder. Potential debris within the gallbladder. Poor visibility of the pancreas. IMPRESSION: 1. Findings of early hepatic cirrhosis. 2. Fatty infiltration of liver. 3. Contracted gallbladder with a trace amount of gallbladder debris. 4. Normal caliber bile duct. The above report was generated using voice recognition software. It may contain grammatical, syntax or spelling errors. Electronically signed by: Cuco Oreilly M.D. 10/08/2017 1:47 PM Dictated Date/Time: 10/08/2017 1:40 PM
[2017-10-08 15:06] VITALS: BP 115/79; PULSE 102; TEMP 37; O2SAT 94
[2017-10-08 19:29] VITALS: BP 115/74; PULSE 117; TEMP 38.5; O2SAT 94
[2017-10-08] MEDS: ACETAMINOPHEN 325 MG TAB PO PRN (19:39)
[2017-10-08] MEDS: ENOXAPARIN 40 MG/0.4 ML SYR SQ SCH (20:38)
[2017-10-08] MEDS: METOPROLOL SUCC 25MG EXT REL TAB PO SCH (21:19)
--- NOTE | 2017-10-08 21:27 | Progress Note ---
Medicine Progress Note Date & Time of Visit: Oct 08, 2017 at 21:23. Subjective seen resting in bed, comfortable in good spirits states he feels better overall breathing is now ok, no cough/sputum denies other symptoms Objective Last 8 Hrs Date Time Temp Pulse Resp B/P (MAP) Pulse Ox O2 Delivery O2 Flow Rate FiO2 10/08/17 19:29 38.5 117 20 115/74 (88) 94 Room Air 10/08/17 15:15 Room Air 10/08/17 15:06 37.0 102 20 115/79 (91) 94 Room Air Physical Exam: General- oriented x 3, not in distress, speaks in sentences with no effort Head- atraumatic Eyes- EOMI, anicteric ENT- oropharynx clear Neck- supple, no JVD, no adenopathy, no thyromegaly Lungs- clear BS bilaterally Heart- regular rhythm; no murmur, normal rate Abdomen- normal bowel sounds, soft, mild RUQ tenderness Extremities- no pretibial edema, no calf tenderness Neuro- alert, oriented x 3; no gross focal deficits Skin- warm & dry Laboratory Results: Last 24 Hours Test 10/08/17 06:15 10/08/17 07:47 10/08/17 11:09 10/08/17 11:22 Urine Color DK YELLOW Urine Appearance CLEAR Urine pH 5.0 Urine Specific [place] 1.029 Urine Protein NEG Urine Glucose (UA) NEG Urine Ketones TRACE Urine Occult Blood NEG Urine Nitrite NEG Urine Bilirubin NEG Urine Urobilinogen NEG Urine Leukocyte Esterase NEG Bedside Glucose 128 mg/dl 222 mg/dl White Blood Count 9.78 K/uL Red Blood Count 4.47 M/uL Hemoglobin 12.1 g/dL Hematocrit 38.2 % Mean Corpuscular Volume 85.5 fL Mean Corpuscular Hemoglobin 27.1 pg Mean Corpuscular Hemoglobin Concent 31.7 g/dl Platelet Count 295 K/uL Mean Platelet Volume 9.7 fL Neutrophils (%) (Auto) 75.4 % Lymphocytes (%) (Auto) 11.3 % Monocytes (%) (Auto) 10.6 % Eosinophils (%) (Auto) 2.2 % Basophils (%) (Auto) 0.2 % Neutrophils # (Auto) 7.36 K/uL Lymphocytes # (Auto) 1.11 K/uL Monocytes # (Auto) 1.04 K/uL Eosinophils # (Auto) 0.22 K/uL Basophils # (Auto) 0.02 K/uL RDW Standard Deviation 61.3 fL RDW Coefficient of Variation 19.5 % Immature Granulocyte % (Auto) 0.3 % Immature Granulocyte # (Auto) 0.03 K/uL Sodium Level 133 mmol/L Potassium Level 4.1 mmol/L Chloride Level 99 mmol/L Carbon Dioxide Level 27 mmol/L Anion Gap 7.0 mmol/L Blood Urea Nitrogen 26 mg/dl Creatinine 1.23 mg/dl Est Creatinine Clear Calc Drug Dose 62.3 ml/min Estimated GFR () 72.5 Estimated GFR (Non- 62.5 BUN/Creatinine Ratio 20.8 Random Glucose 189 mg/dl Calcium Level 8.7 mg/dl Total Bilirubin 0.4 mg/dl Direct Bilirubin 0.2 mg/dl Aspartate Amino Transf (AST/SGOT) 55 U/L Alanine Aminotransferase (ALT/SGPT) 31 U/L Alkaline Phosphatase 364 U/L Total Protein 7.3 gm/dl Albumin 2.6 gm/dl Test 10/08/17 16:32 10/08/17 20:24 Bedside Glucose 164 mg/dl 170 mg/dl Assessment & Plan COUGH, likely COMM ACQUIRED PNA - CXR bilateral lower lobe infiltrates - Speech therapist ruled out aspiration - change Clinda to Levaquin monitor RUQ tenderness - chronic? - Liver US no cholecystitis LFT improving - monitor Hypertension, stable. DM2, on oral meds well controlled as of recent outpatient hemoglobin A1c of 6.6 last August 2017. Metastatic colon cancer status post surgery/chemotherapy disease progression as per outpatient records hx tumor cirrhosis hronic systolic heart failure secondary to non-ischemic cardiomyopathy Chronic anemia, hemoglobin baseline. PLAN: monitor possible d/c home in AM Current Inpatient Medications: Current Inpatient Medications Medications (Trade) Dose Ordered Sig/Anabell Route Start Time Stop Time Status Last Admin Dose Admin Ioversol (Optiray 320) 100 ml UD PRN IV 10/06/17 18:00 10/10/17 17:59 Enoxaparin Sodium (Lovenox Inj) 40 mg Q24H SQ 10/06/17 22:00 11/05/17 21:59 10/08/17 20:38 40 MG Acetaminophen (Tylenol Tab) 325 mg Q6H PRN PO 10/06/17 21:00 11/05/17 20:59 10/08/17 19:39 325 MG Insulin Aspart (novoLOG ASPART) SLIDING SCALE If C... ACHS SC 10/06/17 21:00 11/05/17 20:59 Glucose (Glucose 40% Gel) 15-30 GRAMS 15 GRAMS... UD PRN PO 10/06/17 21:00 11/05/17 20:59 Glucose (Glucose Chew Tab) 4-8 Tablets 4 Tabl... UD PRN PO 10/06/17 21:00 11/05/17 20:59 Dextrose (Dextrose 50% 50ML Syringe) 25-50ML OF 50% DW IV FOR... UD PRN IV 10/06/17 21:00 11/05/17 20:59 Glucagon (Glucagon Inj) 1 mg UD PRN SQ 10/06/17 21:00 11/05/17 20:59 Guaifenesin (Mucinex Contr Rel Tab) 600 mg Q12 PO 10/06/17 21:30 11/05/17 21:29 10/08/17 19:40 600 MG Benzonatate (Tessalon Perles Cap) 100 mg TID PRN PO 10/06/17 21:00 11/05/17 20:59 10/07/17 22:03 100 MG Tramadol HCl (Ultram Tab) not relieved by tylenol @ Q6H PRN PO 10/06/17 21:00 11/05/17 20:59 10/08/17 12:13 50 MG Aspirin (Ecotrin Tab) 81 mg DAILY PO 10/07/17 08:00 11/06/17 08:59 10/08/17 08:16 81 MG Atorvastatin Calcium (Lipitor Tab) 20 mg DAILY PO 10/07/17 08:00 11/06/17 08:59 10/08/17 08:16 20 MG Lisinopril (Zestril Tab) 5 mg DAILY PO 10/07/17 08:00 11/06/17 08:59 10/07/17 08:20 5 MG Ondansetron HCl (Zofran Inj) 4 mg Q6H PRN IV 10/06/17 21:00 11/05/17 20:59 Morphine Sulfate (MoRPHine SULFATE INJ) 4 mg Q3H PRN IV 10/06/17 21:00 10/20/17 20:59 10/08/17 06:11 4 MG Lorazepam (Ativan Inj) 0.5 mg Q4H PRN IV 10/06/17 21:00 11/05/17 20:59 Metoprolol Succinate (Toprol Xl Tab) 25 mg HS PO 10/07/17 21:00 11/06/17 08:59 10/08/17 21:19 25 MG Ipratropium Thornton (Atrovent 0.02% 0.5MG/2.5ML Neb) 0.5 mg Q4H PRN INH 10/06/17 21:15 11/05/17 21:14 Levalbuterol (Xopenex 1.25MG/ 0.5ML Neb) 1.25 mg Q4H PRN INH 10/06/17 21:15 11/05/17 21:14 Lactobacillus Acidophilus (Floranex Tab) 4 tab TIDM PO 10/07/17 08:00 11/06/17 07:59 10/08/17 16:54 4 TAB Lidocaine (Lidoderm Patch 5%) 1 patch QAM TD 10/08/17 08:00 11/07/17 07:59 10/08/17 08:15 1 PATCH Miscellaneous (Remove Lidoderm Patch) 1 ea DAILY@1999 N/A 10/07/17 20:00 11/06/17 19:59 10/08/17 19:40 1 EA Levofloxacin (Levaquin Tab) 500 mg DAILY@11 PO 10/09/17 11:00 10/16/17 10:59 Ketorolac Tromethamine (Toradol Inj) 15 mg Q6H PRN IV 10/08/17 11:15 10/13/17 11:14
[2017-10-08 23:56] VITALS: BP 114/77; PULSE 107; TEMP 37.1; O2SAT 96
[2017-10-09] VITALS (8 sets, daily range): BP systolic 91–126; BP diastolic 54–75; PULSE 89–110; TEMP 36.4–39.4; O2SAT 93–97
[2017-10-09] MEDS: ACETAMINOPHEN 325 MG TAB PO PRN ×2 (08:04→19:39)
[2017-10-09] MEDS: GUAIFENESIN 600 MG TABCR PO SCH ×2 (08:05→20:51)
[2017-10-09] MEDS: ATORVASTATIN 20 MG TAB PO SCH (08:05)
[2017-10-09] MEDS: LACTOBACILLUS ACIDOPHILUS (FLORANEX) TAB PO SCH ×3 (08:05→16:35)
[2017-10-09] MEDS: LISINOPRIL 5 MG TAB PO SCH (08:05)
[2017-10-09] MEDS: ASPIRIN 81 MG ECTAB PO SCH (08:05)
[2017-10-09] MEDS: LIDODERM (LIDOCAINE) PATCH 5% TD SCH (08:06)
[2017-10-09] MEDS: TRAMADOL HCL 50 MG TAB PO PRN (08:09)
[2017-10-09] MEDS: INSULIN ASPART 100 UNITS/ML 3 ML PEN SC SCH ×4 (08:23→20:55)
[2017-10-09] MEDS ORDERED: PIPERACILL/TAZOBAC CONSULT ACTIVE SCH (09:11)
[2017-10-09] MEDS: SODIUM CHLORIDE 0.9% 1000ML 1,000 ML IV SCH ×2 (09:18→23:55)
[2017-10-09 09:21] LABS: BASO % 0.2 %; BASO ABS # 0.02 K/uL (0-0.2); COMPLETE YES; EOS % 0.4 %; HEMATOCRIT 36.6 % (42-52); IG% 0.2 %; LYMPH ABS # 1.12 K/uL (1.2-3.4); MEAN CELL VOLUME 83.9 fL (80-100); MEAN CORPUSCULAR HEMOGLOBIN 27.3 pg (25-34); MEAN CORPUSCULAR HGB CONC 32.5 g/dl (32-36); MEAN PLATELET VOLUME 9.6 fL (7.4-10.4); MONO % 8.2 %; PLATELET COUNT 234 K/uL (130-400); RED BLOOD COUNT 4.36 M/uL (4.7-6.1); WHITE BLOOD COUNT 12.51 K/uL (4.8-10.8)
[2017-10-09] MEDS ORDERED: PIPERACILL/TAZOBAC IV 4.5 GM in DEXTROSE 5% 100ML IV SCH (09:30)
[2017-10-09 09:40] LABS: BUN/CREATININE RATIO 17.5 (10-20); CALCIUM 8.8 mg/dl (8.5-10.1); CREATININE 1.22 mg/dl (0.60-1.40); POTASSIUM 3.8 mmol/L (3.5-5.1)
[2017-10-09] MEDS: LEVOFLOXACIN 500 MG TAB PO SCH (12:03)
[2017-10-09] MEDS: PIPERACILL/TAZOBAC IV 3.375 GM in DEXTROSE 5% 100ML IV SCH ×2 (16:59→23:55)
--- NOTE | 2017-10-09 19:57 | Progress Note ---
Medicine Progress Note Date & Time of Visit: Oct 09, 2017 at 19:52. Subjective patient was spiking fevers overnight on exam, sitting up in bed, in good spirits states he feels fine overall denies cough, dyspnea, sputum abdominal feels ok today, no nausea no problems with urination or BM denies other symptoms Objective Last 8 Hrs Date Time Temp Pulse Resp B/P (MAP) Pulse Ox O2 Delivery O2 Flow Rate FiO2 10/09/17 19:20 39.4 101 20 113/71 (85) 95 Room Air 10/09/17 14:36 36.8 97 18 105/71 (82) 97 Room Air Physical Exam: General- oriented x 3, not in distress, speaks in sentences with no effort Eyes- EOMI, anicteric Neck- supple, no JVD Lungs- clear BS bilaterally, no crackles, no wheezing Heart- regular rhythm; no murmur, normal rate Abdomen- normal bowel sounds, soft, NO RUQ tenderness Extremities- no pretibial edema, no calf tenderness Neuro- alert, oriented x 3; no gross focal deficits Skin- warm & dry Laboratory Results: Last 24 Hours Test 10/08/17 20:24 10/09/17 07:35 10/09/17 09:07 10/09/17 11:25 Bedside Glucose 170 mg/dl 157 mg/dl 299 mg/dl White Blood Count 12.51 K/uL Red Blood Count 4.36 M/uL Hemoglobin 11.9 g/dL Hematocrit 36.6 % Mean Corpuscular Volume 83.9 fL Mean Corpuscular Hemoglobin 27.3 pg Mean Corpuscular Hemoglobin Concent 32.5 g/dl Platelet Count 234 K/uL Mean Platelet Volume 9.6 fL Neutrophils (%) (Auto) 82.0 % Lymphocytes (%) (Auto) 9.0 % Monocytes (%) (Auto) 8.2 % Eosinophils (%) (Auto) 0.4 % Basophils (%) (Auto) 0.2 % Neutrophils # (Auto) 10.26 K/uL Lymphocytes # (Auto) 1.12 K/uL Monocytes # (Auto) 1.03 K/uL Eosinophils # (Auto) 0.05 K/uL Basophils # (Auto) 0.02 K/uL RDW Standard Deviation 59.3 fL RDW Coefficient of Variation 19.3 % Immature Granulocyte % (Auto) 0.2 % Immature Granulocyte # (Auto) 0.03 K/uL Sodium Level 133 mmol/L Potassium Level 3.8 mmol/L Chloride Level 99 mmol/L Carbon Dioxide Level 24 mmol/L Anion Gap 10.0 mmol/L Blood Urea Nitrogen 21 mg/dl Creatinine 1.22 mg/dl Est Creatinine Clear Calc Drug Dose 62.8 ml/min Estimated GFR () 73.2 Estimated GFR (Non- 63.1 BUN/Creatinine Ratio 17.5 Random Glucose 232 mg/dl Calcium Level 8.8 mg/dl Total Bilirubin 1.2 mg/dl Direct Bilirubin 0.6 mg/dl Aspartate Amino Transf (AST/SGOT) 70 U/L Alanine Aminotransferase (ALT/SGPT) 35 U/L Alkaline Phosphatase 412 U/L Total Protein 7.6 gm/dl Albumin 2.6 gm/dl Test 10/09/17 12:09 10/09/17 16:11 Bedside Glucose 232 mg/dl 103 mg/dl Date/Time Source Procedure Growth Status 10/09/17 09:30 Blood Blood Culture Pending Received 10/09/17 09:23 Blood Blood Culture Pending Received Assessment & Plan FEVER, LIKELY FROM: COUGH, COMM ACQUIRED PNA R/O UTI, BACTEREMIA CHOLECYSTITIS? - CXR bilateral lower lobe infiltrates Speech therapist ruled out aspiration changed Clinda to Levaquin - check urine culture repeat blood culture add empiric Zosyn - LFT slightly increased Liver US contracted GB no Espino's sign monitor closely Hypertension, stable. DM2, on oral meds well controlled as of recent outpatient hemoglobin A1c of 6.6 last August 2017. Metastatic colon cancer, with Liver Mets status post surgery/chemotherapy - disease progression as per outpatient records has tried multiple chemo agents Chronic systolic heart failure secondary to non-ischemic cardiomyopathy - euvolemic Chronic anemia - hemoglobin baseline. PLAN: monitor anticipate d/c home when medically stable Current Inpatient Medications: Current Inpatient Medications Medications (Trade) Dose Ordered Sig/Anabell Route Start Time Stop Time Status Last Admin Dose Admin Ioversol (Optiray 320) 100 ml UD PRN IV 10/06/17 18:00 10/10/17 17:59 Enoxaparin Sodium (Lovenox Inj) 40 mg Q24H SQ 10/06/17 22:00 11/05/17 21:59 10/08/17 20:38 40 MG Acetaminophen (Tylenol Tab) 325 mg Q6H PRN PO 10/06/17 21:00 11/05/17 20:59 10/09/17 19:39 325 MG Insulin Aspart (novoLOG ASPART) SLIDING SCALE If C... ACHS SC 10/06/17 21:00 11/05/17 20:59 10/09/17 12:12 3 UNITS Glucose (Glucose 40% Gel) 15-30 GRAMS 15 GRAMS... UD PRN PO 10/06/17 21:00 11/05/17 20:59 Glucose (Glucose Chew Tab) 4-8 Tablets 4 Tabl... UD PRN PO 10/06/17 21:00 11/05/17 20:59 Dextrose (Dextrose 50% 50ML Syringe) 25-50ML OF 50% DW IV FOR... UD PRN IV 10/06/17 21:00 11/05/17 20:59 Glucagon (Glucagon Inj) 1 mg UD PRN SQ 10/06/17 21:00 11/05/17 20:59 Guaifenesin (Mucinex Contr Rel Tab) 600 mg Q12 PO 10/06/17 21:30 11/05/17 21:29 10/09/17 08:05 600 MG Benzonatate (Tessalon Perles Cap) 100 mg TID PRN PO 10/06/17 21:00 11/05/17 20:59 10/07/17 22:03 100 MG Tramadol HCl (Ultram Tab) not relieved by tylenol @ Q6H PRN PO 10/06/17 21:00 11/05/17 20:59 10/09/17 08:09 50 MG Aspirin (Ecotrin Tab) 81 mg DAILY PO 10/07/17 08:00 11/06/17 08:59 10/09/17 08:05 81 MG Atorvastatin Calcium (Lipitor Tab) 20 mg DAILY PO 10/07/17 08:00 11/06/17 08:59 10/09/17 08:05 20 MG Lisinopril (Zestril Tab) 5 mg DAILY PO 10/07/17 08:00 11/06/17 08:59 10/09/17 08:05 5 MG Ondansetron HCl (Zofran Inj) 4 mg Q6H PRN IV 10/06/17 21:00 11/05/17 20:59 Morphine Sulfate (MoRPHine SULFATE INJ) 4 mg Q3H PRN IV 10/06/17 21:00 10/20/17 20:59 10/08/17 06:11 4 MG Lorazepam (Ativan Inj) 0.5 mg Q4H PRN IV 10/06/17 21:00 11/05/17 20:59 Metoprolol Succinate (Toprol Xl Tab) 25 mg HS PO 10/07/17 21:00 11/06/17 08:59 10/08/17 21:19 25 MG Ipratropium Levasy (Atrovent 0.02% 0.5MG/2.5ML Neb) 0.5 mg Q4H PRN INH 10/06/17 21:15 11/05/17 21:14 Levalbuterol (Xopenex 1.25MG/ 0.5ML Neb) 1.25 mg Q4H PRN INH 10/06/17 21:15 11/05/17 21:14 Lactobacillus Acidophilus (Floranex Tab) 4 tab TIDM PO 10/07/17 08:00 11/06/17 07:59 10/09/17 16:35 4 TAB Lidocaine (Lidoderm Patch 5%) 1 patch QAM TD 10/08/17 08:00 11/07/17 07:59 10/09/17 08:06 1 PATCH Miscellaneous (Remove Lidoderm Patch) 1 ea DAILY@1999 N/A 10/07/17 20:00 11/06/17 19:59 10/08/17 19:40 1 EA Levofloxacin (Levaquin Tab) 500 mg DAILY@11 PO 10/09/17 11:00 10/16/17 10:59 10/09/17 12:03 500 MG Ketorolac Tromethamine (Toradol Inj) 15 mg Q6H PRN IV 10/08/17 11:15 10/13/17 11:14 Sodium Chloride 1,000 ml @ 75 mls/hr [id number] IV 10/09/17 09:15 11/08/17 09:14 10/09/17 09:18 75 MLS/HR Piperacillin Sod/ Tazobactam Sod (Consult) 1 ea UD N/A 10/09/17 09:11 11/08/17 09:10 Piperacillin Sod/ Tazobactam Sod 3.375 gm/Dextrose 115 ml @ 28.75 mls/ hr Q8@0000,0800,1600 IV 10/09/17 16:00 10/16/17 15:59 10/09/17 16:59 28.75 MLS/HR
[2017-10-09] MEDS: ENOXAPARIN 40 MG/0.4 ML SYR SQ SCH (20:52)
[2017-10-09] MEDS: METOPROLOL SUCC 25MG EXT REL TAB PO SCH (20:52)
[2017-10-10] VITALS (9 sets, daily range): BP systolic 96–115; BP diastolic 67–78; PULSE 85–103; TEMP 36.6–38.4; O2SAT 95–97
[2017-10-10] MEDS: INSULIN ASPART 100 UNITS/ML 3 ML PEN SC SCH ×4 (06:30→21:01)
[2017-10-10 07:01] LABS: BASO % 0.2 %; BASO ABS # 0.02 K/uL (0-0.2); COMPLETE YES; EOS % 0.5 %; HEMATOCRIT 36.8 % (42-52); IG% 0.4 %; LYMPH % 8.5 %; LYMPH ABS # 1.08 K/uL (1.2-3.4); MEAN CORPUSCULAR HEMOGLOBIN 27.6 pg (25-34); MEAN CORPUSCULAR HGB CONC 32.9 g/dl (32-36); MEAN PLATELET VOLUME 9.8 fL (7.4-10.4); MONO % 9.5 %; NEUT % 80.9 %; PLATELET COUNT 261 K/uL (130-400); RED BLOOD COUNT 4.38 M/uL (4.7-6.1); WHITE BLOOD COUNT 12.78 K/uL (4.8-10.8)
[2017-10-10 07:19] LABS: BUN/CREATININE RATIO 16.7 (10-20); CALCIUM 8.5 mg/dl (8.5-10.1); CREATININE 1.26 mg/dl (0.60-1.40); POTASSIUM 4.2 mmol/L (3.5-5.1)
[2017-10-10] MEDS: SODIUM CHLORIDE 0.9% 1000ML 1,000 ML IV SCH (08:16)
[2017-10-10] MEDS: GUAIFENESIN 600 MG TABCR PO SCH ×2 (08:18→20:55)
[2017-10-10] MEDS: ATORVASTATIN 20 MG TAB PO SCH (08:18)
[2017-10-10] MEDS: LISINOPRIL 5 MG TAB PO SCH (08:18)
[2017-10-10] MEDS: LACTOBACILLUS ACIDOPHILUS (FLORANEX) TAB PO SCH ×3 (08:18→16:38)
[2017-10-10] MEDS: ASPIRIN 81 MG ECTAB PO SCH (08:18)
[2017-10-10] MEDS: LEVOFLOXACIN 500 MG TAB PO SCH (08:19)
[2017-10-10] MEDS: LIDODERM (LIDOCAINE) PATCH 5% TD SCH (08:20)
[2017-10-10] MEDS: PIPERACILL/TAZOBAC IV 3.375 GM in DEXTROSE 5% 100ML IV SCH ×2 (08:26→16:36)
[2017-10-10] MEDS: ACETAMINOPHEN 325 MG TAB PO PRN (10:38)
[2017-10-10] MEDS ORDERED: NAPROXEN 250 MG TAB PO ONE (13:58)
--- NOTE | 2017-10-10 14:24 | Progress Note ---
Progress Note Date of Service Oct 10, 2017. Progress Note ID Consult Dictated #[id number] A/P: 1. Fever - infections vs metastatic ca -follow repeat cultures, if negative, can stop abx -Naproxen started, follow fever curve -thank you
--- NOTE | 2017-10-10 14:52 | INFECT. DISEASE CONSULTATION ---
DATE OF CONSULTATION: 10/10/2017 REQUESTING PHYSICIAN: Dr. Gato Damian. HISTORY OF PRESENT ILLNESS: This is a 61-year-old gentleman who was admitted to the hospital with 2 months' worth of nonproductive cough. He did have imaging done in the Emergency Room that was negative for PE, but did show bilateral lower lobe changes which could be infectious versus atelectasis. He did undergo a workup for aspiration and this was unremarkable. He currently denies any shortness of breath or cough. He has no pleuritic chest pain. His only complaint is of occasional pain in his right flank with deep inspiration. He does have a history of colon cancer with mets to his liver and a history of tumor cirrhosis. Currently, he is not on any chemotherapy. He was initially placed on Levaquin and clindamycin, the clindamycin was discontinued and Zosyn was added. He was afebrile on the and ; however, on the , he had a T-max of 38.5 and on the , he had a T-max of 39.4. He states he is asymptomatic, having fever. A flu swab was negative. His UA was negative. His white blood cell count was 12.7. Blood cultures from the are negative as well. He did have repeat blood cultures ordered yesterday and they are pending. He remains on antibiotics and is tolerating them well. He currently denies any chest pain, cough or shortness of breath. He denies any hemoptysis. He is ambulating without difficulty. He denies any nausea, vomiting, diarrhea or abdominal pain. He is eating well. He has no urinary symptoms. I did speak with his primary physician and he was started on naproxen today for sort of tumor-related fever. All remaining review of systems is reviewed and is unremarkable. PAST MEDICAL HISTORY: Significant for metastatic colon cancer with surgery and history of chemotherapy, tumors versus anemia, systolic heart failure, hypertension, GERD, and type 2 diabetes. PAST SURGICAL HISTORY: Significant for the port placement and colectomy. ALLERGIES: HE IS ALLERGIC TO OXALIPLATIN. FAMILY HISTORY: Noncontributory. SOCIAL HISTORY: Negative for tobacco use, alcohol use or drug use. CURRENT MEDICATIONS: Include naproxen, Zosyn, Levaquin, Toradol, Toprol-XL, Lidoderm patch, Ecotrin, Lipitor, Zestril, Floranex, Lovenox, Mucinex, Atrovent, Xopenex, Tylenol, insulin, Ultram, Tessalon Perles, Zofran, morphine and Ativan. PHYSICAL EXAMINATION: VITAL SIGNS: He currently is afebrile with a temperature of 36.6. His T-max overnight is 39, pulse 103, respiratory rate 18, blood pressure 96/67, oxygen saturation is 96% on room air. GENERAL: He is awake, alert and oriented x3. He is in no acute distress. HEENT: Mucous membranes are moist. Extraocular muscles are intact. HEART: Regular. LUNGS: Clear bilaterally. There is no wheezing or rhonchi. ABDOMEN: Soft and nontender. There is no edema bilaterally. SKIN: Without rash. LABORATORY STUDIES: CBC today reveals a white blood cell count of 12.7, hemoglobin 12.1, platelets are 261. Chemistry panel reveals a sodium of 132, potassium 4.2, chloride 101, bicarbonate 24, BUN 21, creatinine 1.2, glucose is 288. AST is 88, ALT is 51. Procalcitonin today is 1.0. Urinalysis is unremarkable. Flu swab is negative. Blood cultures from the are no growth to date x2 sets. Urine and blood cultures are pending from today. A liver ultrasound done on the shows early hepatic cirrhosis, fatty infiltration of the liver. ASSESSMENT AND PLAN: Fever. At this time, it is unclear if this is infectious or related to underlying metastatic disease. He was started on naproxen today. I would recommend continuing current antibiotics for question an aspiration pneumonitis pending repeat blood cultures. If these are negative, likely he can be followed off antibiotics, especially if his fever resolves with naproxen. If he does develop any cough, sputum culture should be obtained.
--- NOTE | 2017-10-10 19:06 | Progress Note ---
Medicine Progress Note Date & Time of Visit: Oct 10, 2017 at 19:03. Subjective seen resting in bed, comfortable in good spirits, bright, alert states he feels fine overall dry cough improving, denies dyspnea no abdominal pain, nausea/vomiting no other symptoms Objective Last 8 Hrs Date Time Temp Pulse Resp B/P (MAP) Pulse Ox O2 Delivery O2 Flow Rate FiO2 10/10/17 14:57 37.2 99 20 100/67 (78) 97 Room Air 10/10/17 12:52 36.6 10/10/17 11:25 37.8 103 18 96/67 (77) 96 Room Air Physical Exam: General- oriented x 3, not in distress, speaks in sentences with no effort Eyes- anicteric Neck- no JVD Lungs- clear BS bilaterally, no crackles Heart- regular rhythm; no murmur, normal rate Abdomen- normal bowel sounds, soft, NO RUQ tenderness Extremities- no pretibial edema, no calf tenderness Neuro- alert, oriented x 3; no gross focal deficits Skin- warm & dry Laboratory Results: Last 24 Hours Test 10/09/17 20:38 10/10/17 06:43 10/10/17 07:44 10/10/17 09:10 Bedside Glucose 205 mg/dl 162 mg/dl White Blood Count 12.78 K/uL Red Blood Count 4.38 M/uL Hemoglobin 12.1 g/dL Hematocrit 36.8 % Mean Corpuscular Volume 84.0 fL Mean Corpuscular Hemoglobin 27.6 pg Mean Corpuscular Hemoglobin Concent 32.9 g/dl Platelet Count 261 K/uL Mean Platelet Volume 9.8 fL Neutrophils (%) (Auto) 80.9 % Lymphocytes (%) (Auto) 8.5 % Monocytes (%) (Auto) 9.5 % Eosinophils (%) (Auto) 0.5 % Basophils (%) (Auto) 0.2 % Neutrophils # (Auto) 10.35 K/uL Lymphocytes # (Auto) 1.08 K/uL Monocytes # (Auto) 1.21 K/uL Eosinophils # (Auto) 0.07 K/uL Basophils # (Auto) 0.02 K/uL RDW Standard Deviation 58.8 fL RDW Coefficient of Variation 19.1 % Immature Granulocyte % (Auto) 0.4 % Immature Granulocyte # (Auto) 0.05 K/uL Sodium Level 132 mmol/L Potassium Level 4.2 mmol/L Chloride Level 101 mmol/L Carbon Dioxide Level 24 mmol/L Anion Gap 7.0 mmol/L Blood Urea Nitrogen 21 mg/dl Creatinine 1.26 mg/dl Est Creatinine Clear Calc Drug Dose 60.8 ml/min Estimated GFR () 70.4 Estimated GFR (Non- 60.7 BUN/Creatinine Ratio 16.7 Random Glucose 142 mg/dl Calcium Level 8.5 mg/dl Total Bilirubin 1.0 mg/dl Direct Bilirubin 0.5 mg/dl Aspartate Amino Transf (AST/SGOT) 88 U/L Alanine Aminotransferase (ALT/SGPT) 51 U/L Alkaline Phosphatase 437 U/L Total Protein 7.4 gm/dl Albumin 2.4 gm/dl Procalcitonin 1.02 ng/ml Test 10/10/17 11:26 10/10/17 16:27 Bedside Glucose 288 mg/dl 143 mg/dl Date/Time Source Procedure Growth Status 10/09/17 23:45 Urine , Clean Catch Urine Culture Pending Received Assessment & Plan FEVER, LIKELY FROM: COUGH, COMM ACQUIRED PNA R/O UTI, BACTEREMIA from TUMOR FEVER? COLON CA WITH LIVER METS - CXR bilateral lower lobe infiltrates Speech therapist ruled out aspiration changed Clinda to Levaquin, Zosyn - check urine culture repeat blood culture - Naproxen added monitor - LFT slightly increased Liver US contracted GB no Espino's sign monitor closely Hypertension, stable. DM2, on oral meds well controlled as of recent outpatient hemoglobin A1c of 6.6 last August 2017. Metastatic colon cancer, with Liver Mets status post surgery/chemotherapy - disease progression as per outpatient records has tried multiple chemo agents, possible hospice as per Oncologist Chronic systolic heart failure secondary to non-ischemic cardiomyopathy - euvolemic Chronic anemia - hemoglobin baseline. PLAN: monitor anticipate d/c home when medically stable Current Inpatient Medications: Current Inpatient Medications Medications (Trade) Dose Ordered Sig/Anbaell Route Start Time Stop Time Status Last Admin Dose Admin Enoxaparin Sodium (Lovenox Inj) 40 mg Q24H SQ 10/06/17 22:00 11/05/17 21:59 10/09/17 20:52 40 MG Acetaminophen (Tylenol Tab) 325 mg Q6H PRN PO 10/06/17 21:00 11/05/17 20:59 10/10/17 10:38 325 MG Insulin Aspart (novoLOG ASPART) SLIDING SCALE If C... ACHS SC 10/06/17 21:00 11/05/17 20:59 10/10/17 12:49 5 UNITS Glucose (Glucose 40% Gel) 15-30 GRAMS 15 GRAMS... UD PRN PO 10/06/17 21:00 11/05/17 20:59 Glucose (Glucose Chew Tab) 4-8 Tablets 4 Tabl... UD PRN PO 10/06/17 21:00 11/05/17 20:59 Dextrose (Dextrose 50% 50ML Syringe) 25-50ML OF 50% DW IV FOR... UD PRN IV 10/06/17 21:00 11/05/17 20:59 Glucagon (Glucagon Inj) 1 mg UD PRN SQ 10/06/17 21:00 11/05/17 20:59 Guaifenesin (Mucinex Contr Rel Tab) 600 mg Q12 PO 10/06/17 21:30 11/05/17 21:29 10/10/17 08:18 600 MG Benzonatate (Tessalon Perles Cap) 100 mg TID PRN PO 10/06/17 21:00 11/05/17 20:59 10/07/17 22:03 100 MG Tramadol HCl (Ultram Tab) not relieved by tylenol @ Q6H PRN PO 10/06/17 21:00 11/05/17 20:59 10/09/17 08:09 50 MG Aspirin (Ecotrin Tab) 81 mg DAILY PO 10/07/17 08:00 11/06/17 08:59 10/10/17 08:18 81 MG Atorvastatin Calcium (Lipitor Tab) 20 mg DAILY PO 10/07/17 08:00 11/06/17 08:59 10/10/17 08:18 20 MG Lisinopril (Zestril Tab) 5 mg DAILY PO 10/07/17 08:00 11/06/17 08:59 10/10/17 08:18 5 MG Ondansetron HCl (Zofran Inj) 4 mg Q6H PRN IV 10/06/17 21:00 11/05/17 20:59 Morphine Sulfate (MoRPHine SULFATE INJ) 4 mg Q3H PRN IV 10/06/17 21:00 10/20/17 20:59 10/08/17 06:11 4 MG Lorazepam (Ativan Inj) 0.5 mg Q4H PRN IV 10/06/17 21:00 11/05/17 20:59 Metoprolol Succinate (Toprol Xl Tab) 25 mg HS PO 10/07/17 21:00 11/06/17 08:59 10/09/17 20:52 25 MG Ipratropium [place] (Atrovent 0.02% 0.5MG/2.5ML Neb) 0.5 mg Q4H PRN INH 10/06/17 21:15 11/05/17 21:14 Levalbuterol (Xopenex 1.25MG/ 0.5ML Neb) 1.25 mg Q4H PRN INH 10/06/17 21:15 11/05/17 21:14 Lactobacillus Acidophilus (Floranex Tab) 4 tab TIDM PO 10/07/17 08:00 11/06/17 07:59 10/10/17 16:38 4 TAB Lidocaine (Lidoderm Patch 5%) 1 patch QAM TD 10/08/17 08:00 11/07/17 07:59 10/10/17 08:20 1 PATCH Miscellaneous (Remove Lidoderm Patch) 1 ea DAILY@1999 N/A 10/07/17 20:00 11/06/17 19:59 10/09/17 20:50 1 EA Levofloxacin (Levaquin Tab) 500 mg DAILY@11 PO 10/09/17 11:00 10/16/17 10:59 10/10/17 08:19 500 MG Ketorolac Tromethamine (Toradol Inj) 15 mg Q6H PRN IV 10/08/17 11:15 10/13/17 11:14 Sodium Chloride 1,000 ml @ 75 mls/hr [id number] IV 10/09/17 09:15 11/08/17 09:14 10/10/17 08:16 75 MLS/HR Piperacillin Sod/ Tazobactam Sod (Consult) 1 ea UD N/A 10/09/17 09:11 11/08/17 09:10 Piperacillin Sod/ Tazobactam Sod 3.375 gm/Dextrose 115 ml @ 28.75 mls/ hr Q8@0000,0800,1600 IV 10/09/17 16:00 10/16/17 15:59 10/10/17 16:36 28.75 MLS/HR Naproxen (Naprosyn Tab) 250 mg BID PO 10/10/17 20:00 11/09/17 19:59
[2017-10-10] MEDS: NAPROXEN 250 MG TAB PO SCH (20:56)
[2017-10-10] MEDS: METOPROLOL SUCC 25MG EXT REL TAB PO SCH (20:56)
[2017-10-10] MEDS: ENOXAPARIN 40 MG/0.4 ML SYR SQ SCH (20:58)
[2017-10-11] MEDS: PIPERACILL/TAZOBAC IV 3.375 GM in DEXTROSE 5% 100ML IV SCH ×3 (00:52→16:13)
[2017-10-11] MEDS: SODIUM CHLORIDE 0.9% 1000ML 1,000 ML IV SCH ×2 (00:52→08:47)
[2017-10-11 04:28] VITALS: BP 107/70; PULSE 77; TEMP 36.6; O2SAT 97
[2017-10-11] MEDS: INSULIN ASPART 100 UNITS/ML 3 ML PEN SC SCH ×4 (06:30→20:20)
[2017-10-11 07:24] VITALS: BP 117/77; PULSE 75; TEMP 36.7; O2SAT 95
[2017-10-11 07:26] LABS: BUN/CREATININE RATIO 18.6 (10-20); CALCIUM 8.2 mg/dl (8.5-10.1); CREATININE 0.98 mg/dl (0.60-1.40)
[2017-10-11] MEDS: GUAIFENESIN 600 MG TABCR PO SCH ×2 (08:48→20:17)
[2017-10-11] MEDS: LACTOBACILLUS ACIDOPHILUS (FLORANEX) TAB PO SCH ×3 (08:49→16:15)
[2017-10-11] MEDS: NAPROXEN 250 MG TAB PO SCH ×2 (08:50→20:15)
[2017-10-11] MEDS: ASPIRIN 81 MG ECTAB PO SCH (08:51)
[2017-10-11] MEDS: LISINOPRIL 5 MG TAB PO SCH (08:51)
[2017-10-11] MEDS: ATORVASTATIN 20 MG TAB PO SCH (08:51)
[2017-10-11] MEDS: LIDODERM (LIDOCAINE) PATCH 5% TD SCH (08:53)
[2017-10-11] MEDS: LEVOFLOXACIN 500 MG TAB PO SCH (12:30)
[2017-10-11 15:10] VITALS: BP 117/74; PULSE 82; TEMP 36.9; O2SAT 96
--- NOTE | 2017-10-11 17:07 | Progress Note ---
Medicine Progress Note Date & Time of Visit: Oct 11, 2017 at 17:04. Subjective patient seen resting in bed, comfortable in good spirits, states he feels good overall afebrile overnight denies cough, dyspnea no abdominal pain no other symptoms Objective Last 8 Hrs Date Time Temp Pulse Resp B/P (MAP) Pulse Ox O2 Delivery O2 Flow Rate FiO2 10/11/17 15:10 36.9 82 18 117/74 (88) 96 Room Air Physical Exam: General- oriented x 3, not in distress, speaks in sentences with no effort Neck- no JVD Lungs- clear breath sounds bilaterally Heart- regular rhythm; no murmur, normal rate Abdomen- normal bowel sounds, soft, NO RUQ tenderness Extremities- no pretibial edema, no calf tenderness Neuro- alert, oriented x 3; no gross focal deficits Skin- warm & dry Laboratory Results: Last 24 Hours Test 10/10/17 20:25 10/11/17 06:24 10/11/17 07:38 10/11/17 11:21 Bedside Glucose 238 mg/dl 127 mg/dl 180 mg/dl Sodium Level 138 mmol/L Potassium Level 4.0 mmol/L Chloride Level 107 mmol/L Carbon Dioxide Level 24 mmol/L Anion Gap 7.0 mmol/L Blood Urea Nitrogen 18 mg/dl Creatinine 0.98 mg/dl Est Creatinine Clear Calc Drug Dose 78.2 ml/min Estimated GFR () 95.4 Estimated GFR (Non- 82.3 BUN/Creatinine Ratio 18.6 Random Glucose 117 mg/dl Calcium Level 8.2 mg/dl Total Bilirubin 0.8 mg/dl Direct Bilirubin 0.5 mg/dl Aspartate Amino Transf (AST/SGOT) 67 U/L Alanine Aminotransferase (ALT/SGPT) 49 U/L Alkaline Phosphatase 428 U/L Total Protein 6.5 gm/dl Albumin 2.1 gm/dl Test 10/11/17 16:39 Bedside Glucose 174 mg/dl Assessment & Plan FEVER, LIKELY FROM: COUGH, COMM ACQUIRED PNA from TUMOR FEVER? COLON CA WITH LIVER METS - CXR bilateral lower lobe infiltrates Speech therapist ruled out aspiration changed Clinda to Levaquin, - check urine culture repeat blood culture Negative--> d/c today - Naproxen added--> fever curve improving monitor - LFT slightly increased Liver US contracted GB no Espino's sign LFTs improving - possible d/c tomorrow with PO Levaquin Hypertension, stable. DM2, on oral meds well controlled as of recent outpatient hemoglobin A1c of 6.6 last August 2017. Metastatic colon cancer, with Liver Mets status post surgery/chemotherapy - disease progression as per outpatient records has tried multiple chemo agents, possible hospice as per Oncologist Chronic systolic heart failure secondary to non-ischemic cardiomyopathy - euvolemic Chronic anemia - hemoglobin baseline. PLAN: monitor anticipate d/c home tomorrow Current Inpatient Medications: Current Inpatient Medications Medications (Trade) Dose Ordered Sig/Anabell Route Start Time Stop Time Status Last Admin Dose Admin Enoxaparin Sodium (Lovenox Inj) 40 mg Q24H SQ 10/06/17 22:00 11/05/17 21:59 10/10/17 20:58 40 MG Acetaminophen (Tylenol Tab) 325 mg Q6H PRN PO 10/06/17 21:00 11/05/17 20:59 10/10/17 10:38 325 MG Insulin Aspart (novoLOG ASPART) SLIDING SCALE If C... ACHS SC 10/06/17 21:00 11/05/17 20:59 10/10/17 21:01 3 UNITS Glucose (Glucose 40% Gel) 15-30 GRAMS 15 GRAMS... UD PRN PO 10/06/17 21:00 11/05/17 20:59 Glucose (Glucose Chew Tab) 4-8 Tablets 4 Tabl... UD PRN PO 10/06/17 21:00 11/05/17 20:59 Dextrose (Dextrose 50% 50ML Syringe) 25-50ML OF 50% DW IV FOR... UD PRN IV 10/06/17 21:00 11/05/17 20:59 Glucagon (Glucagon Inj) 1 mg UD PRN SQ 10/06/17 21:00 11/05/17 20:59 Guaifenesin (Mucinex Contr Rel Tab) 600 mg Q12 PO 10/06/17 21:30 11/05/17 21:29 10/11/17 08:48 600 MG Benzonatate (Tessalon Perles Cap) 100 mg TID PRN PO 10/06/17 21:00 11/05/17 20:59 10/07/17 22:03 100 MG Tramadol HCl (Ultram Tab) not relieved by tylenol @ Q6H PRN PO 10/06/17 21:00 11/05/17 20:59 10/09/17 08:09 50 MG Aspirin (Ecotrin Tab) 81 mg DAILY PO 10/07/17 08:00 11/06/17 08:59 10/11/17 08:51 81 MG Atorvastatin Calcium (Lipitor Tab) 20 mg DAILY PO 10/07/17 08:00 11/06/17 08:59 10/11/17 08:51 20 MG Lisinopril (Zestril Tab) 5 mg DAILY PO 10/07/17 08:00 11/06/17 08:59 10/11/17 08:51 5 MG Ondansetron HCl (Zofran Inj) 4 mg Q6H PRN IV 10/06/17 21:00 11/05/17 20:59 Morphine Sulfate (MoRPHine SULFATE INJ) 4 mg Q3H PRN IV 10/06/17 21:00 10/20/17 20:59 10/08/17 06:11 4 MG Lorazepam (Ativan Inj) 0.5 mg Q4H PRN IV 10/06/17 21:00 11/05/17 20:59 Metoprolol Succinate (Toprol Xl Tab) 25 mg HS PO 10/07/17 21:00 11/06/17 08:59 10/10/17 20:56 25 MG Ipratropium [place] (Atrovent 0.02% 0.5MG/2.5ML Neb) 0.5 mg Q4H PRN INH 10/06/17 21:15 11/05/17 21:14 Levalbuterol (Xopenex 1.25MG/ 0.5ML Neb) 1.25 mg Q4H PRN INH 10/06/17 21:15 11/05/17 21:14 Lactobacillus Acidophilus (Floranex Tab) 4 tab TIDM PO 10/07/17 08:00 11/06/17 07:59 10/11/17 16:15 4 TAB Lidocaine (Lidoderm Patch 5%) 1 patch QAM TD 10/08/17 08:00 11/07/17 07:59 10/11/17 08:53 1 PATCH Miscellaneous (Remove Lidoderm Patch) 1 ea DAILY@1999 N/A 10/07/17 20:00 11/06/17 19:59 10/10/17 20:00 1 EA Levofloxacin (Levaquin Tab) 500 mg DAILY@11 PO 10/09/17 11:00 10/16/17 10:59 10/11/17 12:30 500 MG Ketorolac Tromethamine (Toradol Inj) 15 mg Q6H PRN IV 10/08/17 11:15 10/13/17 11:14 Naproxen (Naprosyn Tab) 250 mg BID PO 10/10/17 20:00 11/09/17 19:59 10/11/17 08:50 250 MG
[2017-10-11 19:42] VITALS: BP 120/75; PULSE 92; TEMP 37.4; O2SAT 95
[2017-10-11] MEDS: METOPROLOL SUCC 25MG EXT REL TAB PO SCH (20:16)
[2017-10-11] MEDS: ENOXAPARIN 40 MG/0.4 ML SYR SQ SCH (20:21)
[2017-10-11 22:04] VITALS: BP 115/75; PULSE 89; TEMP 37.2; O2SAT 93
[2017-10-12 04:30] VITALS: BP 112/75; PULSE 74; TEMP 36.7; O2SAT 97
[2017-10-12] MEDS: INSULIN ASPART 100 UNITS/ML 3 ML PEN SC SCH ×2 (06:30→12:25)
[2017-10-12 07:15] LABS: BUN/CREATININE RATIO 16.9 (10-20); CALCIUM 8.2 mg/dl (8.5-10.1); CREATININE 0.87 mg/dl (0.60-1.40)
[2017-10-12 07:23] VITALS: BP 126/84; PULSE 74; TEMP 36.6; O2SAT 98
[2017-10-12] MEDS: LACTOBACILLUS ACIDOPHILUS (FLORANEX) TAB PO SCH ×2 (07:58→12:23)
[2017-10-12] MEDS: ASPIRIN 81 MG ECTAB PO SCH (07:58)
[2017-10-12] MEDS: ATORVASTATIN 20 MG TAB PO SCH (07:58)
[2017-10-12] MEDS: LISINOPRIL 5 MG TAB PO SCH (07:59)
[2017-10-12] MEDS: NAPROXEN 250 MG TAB PO SCH (07:59)
[2017-10-12] MEDS: LIDODERM (LIDOCAINE) PATCH 5% TD SCH (08:00)
[2017-10-12] MEDS: GUAIFENESIN 600 MG TABCR PO SCH (09:37)
[2017-10-12] MEDS: LEVOFLOXACIN 500 MG TAB PO SCH (12:22)
[2017-10-12 13:06] VITALS: BP 126/84; PULSE 74; TEMP 36.6; O2SAT 98
--- NOTE | 2017-10-12 13:15 | Progress Note ---
Medicine Progress Note Date & Time of Visit: Oct 12, 2017 at 13:08. Subjective seen with brother Ady at bedside ambulating in room in good spirits comfortable states he feels five overall denies chest pain dyspnea palpitations, dizziness no cough no abdominal pain no other symptoms states he is ready and would like to be discharged today Objective Last 8 Hrs Date Time Temp Pulse Resp B/P (MAP) Pulse Ox O2 Delivery O2 Flow Rate FiO2 10/12/17 13:06 36.6 74 18 98 Room Air 10/12/17 08:00 Room Air 10/12/17 07:23 36.6 74 18 126/84 (98) 98 Room Air Physical Exam: General- oriented x 3, not in distress Neck- no JVD Lungs- clear breath sounds bilaterally, no rales/wheezes Heart- regular rhythm; no murmur, normal rate Abdomen- normal bowel sounds, soft, NO tenderness Extremities- no pretibial edema, no calf tenderness Neuro- alert, oriented x 3; no gross focal deficits Skin- warm & dry Laboratory Results: Last 24 Hours Test 10/11/17 16:39 10/11/17 19:55 10/12/17 05:34 10/12/17 07:39 Bedside Glucose 174 mg/dl 224 mg/dl 114 mg/dl Sodium Level 137 mmol/L Potassium Level 4.0 mmol/L Chloride Level 107 mmol/L Carbon Dioxide Level 25 mmol/L Anion Gap 5.0 mmol/L Blood Urea Nitrogen 15 mg/dl Creatinine 0.87 mg/dl Est Creatinine Clear Calc Drug Dose 88.1 ml/min Estimated GFR () 107.2 Estimated GFR (Non- 92.5 BUN/Creatinine Ratio 16.9 Random Glucose 117 mg/dl Calcium Level 8.2 mg/dl Total Bilirubin 0.5 mg/dl Direct Bilirubin 0.2 mg/dl Aspartate Amino Transf (AST/SGOT) 61 U/L Alanine Aminotransferase (ALT/SGPT) 50 U/L Alkaline Phosphatase 496 U/L Total Protein 6.9 gm/dl Albumin 2.1 gm/dl Test 10/12/17 11:57 Bedside Glucose 217 mg/dl Assessment & Plan FEVER, LIKELY FROM: COUGH, COMM ACQUIRED PNA from TUMOR FEVER? COLON CA WITH LIVER METS - CXR bilateral lower lobe infiltrates Speech therapist ruled out aspiration - urine culture: negative blood culture 2 sets x2: negative - patient was placed initially on Levaquin clinically improved on exam but was having persistent fever spikes repeat cultures drawn, negative ID consulted, fever felt to be from underlying CA with liver mets Naproxen 250mg BID ordered, no fever since then finish 1 more day of Levaquin PO to complete 7 day treatment continue Naproxen PO BID until re-evaluated by PCP this week ff up with Dr. Marks as scheduled - LFT slightly increased Liver US contracted GB no Espino's sign LFTs improving, monitor Metastatic colon cancer, with Liver Mets status post surgery/chemotherapy - follows with Dr. Marks (+) disease progression as per outpatient records has tried multiple chemo agents, possible hospice referral as per Oncologist scheduled to ff up with Dr. Marks , may need to see him sooner Hypertension, stable. DM2, on oral meds well controlled as of recent outpatient hemoglobin A1c of 6.6 last August 2017. Chronic systolic heart failure secondary to non-ischemic cardiomyopathy - euvolemic Chronic anemia - hemoglobin baseline. PLAN: d/c home ff up with PCP in 3-5 days ff up with Dr. Marks as scheduled Current Inpatient Medications: Current Inpatient Medications Medications (Trade) Dose Ordered Sig/Anabell Route Start Time Stop Time Status Last Admin Dose Admin Enoxaparin Sodium (Lovenox Inj) 40 mg Q24H SQ 10/06/17 22:00 11/05/17 21:59 10/11/17 20:21 40 MG Acetaminophen (Tylenol Tab) 325 mg Q6H PRN PO 10/06/17 21:00 11/05/17 20:59 10/10/17 10:38 325 MG Insulin Aspart (novoLOG ASPART) SLIDING SCALE If C... ACHS SC 10/06/17 21:00 11/05/17 20:59 10/12/17 12:25 2 UNITS Glucose (Glucose 40% Gel) 15-30 GRAMS 15 GRAMS... UD PRN PO 10/06/17 21:00 11/05/17 20:59 Glucose (Glucose Chew Tab) 4-8 Tablets 4 Tabl... UD PRN PO 10/06/17 21:00 11/05/17 20:59 Dextrose (Dextrose 50% 50ML Syringe) 25-50ML OF 50% DW IV FOR... UD PRN IV 10/06/17 21:00 11/05/17 20:59 Glucagon (Glucagon Inj) 1 mg UD PRN SQ 10/06/17 21:00 11/05/17 20:59 Guaifenesin (Mucinex Contr Rel Tab) 600 mg Q12 PO 10/06/17 21:30 11/05/17 21:29 10/12/17 09:37 600 MG Benzonatate (Tessalon Perles Cap) 100 mg TID PRN PO 10/06/17 21:00 11/05/17 20:59 10/07/17 22:03 100 MG Tramadol HCl (Ultram Tab) not relieved by tylenol @ Q6H PRN PO 10/06/17 21:00 11/05/17 20:59 10/09/17 08:09 50 MG Aspirin (Ecotrin Tab) 81 mg DAILY PO 10/07/17 08:00 11/06/17 08:59 10/12/17 07:58 81 MG Atorvastatin Calcium (Lipitor Tab) 20 mg DAILY PO 10/07/17 08:00 11/06/17 08:59 10/12/17 07:58 20 MG Lisinopril (Zestril Tab) 5 mg DAILY PO 10/07/17 08:00 11/06/17 08:59 10/12/17 07:59 5 MG Ondansetron HCl (Zofran Inj) 4 mg Q6H PRN IV 10/06/17 21:00 11/05/17 20:59 Morphine Sulfate (MoRPHine SULFATE INJ) 4 mg Q3H PRN IV 10/06/17 21:00 10/20/17 20:59 10/08/17 06:11 4 MG Lorazepam (Ativan Inj) 0.5 mg Q4H PRN IV 10/06/17 21:00 11/05/17 20:59 Metoprolol Succinate (Toprol Xl Tab) 25 mg HS PO 10/07/17 21:00 11/06/17 08:59 10/11/17 20:16 25 MG Ipratropium [place] (Atrovent 0.02% 0.5MG/2.5ML Neb) 0.5 mg Q4H PRN INH 10/06/17 21:15 11/05/17 21:14 Levalbuterol (Xopenex 1.25MG/ 0.5ML Neb) 1.25 mg Q4H PRN INH 10/06/17 21:15 11/05/17 21:14 Lactobacillus Acidophilus (Floranex Tab) 4 tab TIDM PO 10/07/17 08:00 11/06/17 07:59 10/12/17 12:23 4 TAB Lidocaine (Lidoderm Patch 5%) 1 patch QAM TD 10/08/17 08:00 11/07/17 07:59 10/12/17 08:00 1 PATCH Miscellaneous (Remove Lidoderm Patch) 1 ea DAILY@1999 N/A 10/07/17 20:00 11/06/17 19:59 10/11/17 20:13 1 EA Levofloxacin (Levaquin Tab) 500 mg DAILY@11 PO 10/09/17 11:00 10/16/17 10:59 10/12/17 12:22 500 MG Ketorolac Tromethamine (Toradol Inj) 15 mg Q6H PRN IV 10/08/17 11:15 10/13/17 11:14 Naproxen (Naprosyn Tab) 250 mg BID PO 10/10/17 20:00 11/09/17 19:59 10/12/17 07:59 250 MG Heparin Sodium (Porcine) (Heparin 100 Unit/ml 5ml Flush) 5 ml PRN PRN IV 10/12/17 00:30 11/11/17 00:29 10/12/17 05:32 5 ML
[2017-10-12] MEDS ORDERED: NPR250 PO (13:16)
[2017-10-12] MEDS ORDERED: LVQ500 PO (13:16)
--- NOTE | 2017-10-12 13:22 | Discharge Instructions ---
Discharge Instructions Date of Service Oct 12, 2017. Admission Reason for Admission: Sepsis Discharge Discharge Diagnosis / Problem: PNEUMONIA, FEVER Discharge Goals Goal(s): Diagnostic testing, Therapeutic intervention Activity Recommendations Activity Limitations: as noted below (INCREASE ACTIVITY GRADUALLY TOLERATED) Lifting Limitations: until after follow-up appointment Exercise/Sports Limitations: until after follow-up appointment . Instructions / Follow-Up Instructions / Follow-Up PLEASE REVIEW YOUR NEW MEDICATION LIST AND FOLLOW INSTRUCTIONS CAREFULLY. ALWAYS TAKE NAPROXEN WITH A FULL STOMACH. DRINK PLENTY OF FLUIDS. TAKE YOGURT OR PROBIOTIC DAILY. CALL PRIMARY CARE PHYSICIAN OR RETURN TO ER IMMEDIATELY IF WITH WORSENING SYMPTOMS, INCREASING COUGH, SHORTNESS OF BREATH, FEVER, NAUSEA, ABDOMINAL PAIN, POOR APPETITE, WEIGHT LOSS. FOLLOW UP WITH PRIMARY CARE PHYSICIAN IN 3-5 DAYS ([facility] WILL BE CALLING YOU FOR THE APPOINTMENT SCHEDULE). FOLLOW UP WITH DR. PEREZ- ONCOLOGIST SCHEDULED. Current Hospital Diet Patient's current hospital diet: Diabetes Type 2 Diet, AHA Diet (Heart Healthy) Discharge Diet Recommended Diet: AHA Diet (Heart Healthy), Diabetes Type 2 Diet Procedures Procedures Performed: CT SCAN OF THE CHEST AND ABDOMEN, LIVER US Pending Studies Studies pending at discharge: no Medical Emergencies . Who to Call and When: Medical Emergencies: If at any time you feel your situation is an emergency, please call 911 immediately. . Non-Emergent Contact Non-Emergency issues call your: Primary Care Provider, Oncologist Call Non-Emergent contact if: you have a fever, your pain is not controlled, your pain is worsening, you have any medication questions . . "Provider Documentation" section prepared by Gato Damian. . VTE Core Measure Inpt VTE Proph given/why not?: Enoxaparin (Lovenox)SQ
--- NOTE | 2017-10-12 13:27 | Discharge Summary ---
Discharge Summary Date of Service Oct 12, 2017. Discharge Summary Admission Date: Oct 06, 2017 at 19:53 Discharge Date: Oct 12, 2017 Principal Diagnosis: FEVER, LIKELY FROM: COUGH, COMM ACQUIRED PNA from TUMOR FEVER? COLON CA WITH LIVER METS Secondary Diagnoses/Problems: please refer to hospital course below. Procedures: CHEST ONE VIEW PORTABLE HISTORY: Cough. Right flank pain, liver cancer, CHF COMPARISON: Chest 09/29/2015. FINDINGS: No pneumothorax. Stable blunting of the costophrenic sulci. Low lung findings with bibasilar linear densities. This is also similar to the prior study and therefore favors subsegmental atelectasis are scarring. The heart remains mildly enlarged. The upper lung zones are clear. Emphysema. Left subclavian Port-A-Cath terminates in the SVC. IMPRESSION: 1. Stable mild cartilage. 2. Low lung volumes with bibasilar linear densities. This is similar to the prior study and favors subsegmental atelectasis/scarring. Electronically signed by: Tj Benjamin M.D. (CHEST FOR PE) ANGIO WITH CLINICAL HISTORY: 61 years-old Male presenting with ^Right chest pain with breathing, Liver CA. TECHNIQUE: Multidetector CT angiography of the chest was performed after administration of intravenous contrast. 3-D volumetric and/or maximum intensity projection (MIP) images were subsequently reconstructed for review. IV contrast: 95 mL of Optiray 320. A dose lowering technique was used consistent with the principles of ALARA (as low as reasonably achievable). COMPARISON: 08/29/2015. CT DOSE (mGy.cm): The estimated cumulative dose is 535.86 mGy.cm. FINDINGS: Commercial Analyst topogram: Unremarkable. Pulmonary vasculature: The study is suboptimal for the assessment of the pulmonary vascular tree secondary to respiratory motion artifact limiting evaluation of segmental and subsegmental pulmonary arteries. Allowing for this limitation, no central filling defect. Main pulmonary artery is not enlarged. No flattening of the interventricular septum. No intracardiac intracardiac filling defect. No reflux of contrast into the hepatic veins. Remaining chest: On soft tissue windows, normal thyroid and thoracic inlet. No axillary, supraclavicular, hilar, or mediastinal lymphadenopathy. Normal aorta. Normal heart size. No pericardial or pleural effusion. Nodular contour of the liver suggests underlying cirrhosis. On lung windows, extensive bandlike opacities at the lung bases with volume loss in the bilateral lower lobes. Lower lobe predominant bronchial wall thickening also evident. However, airways remain patent. These changes are more extensive than on prior exam. On bone windows, exaggerated thoracic kyphosis and degenerative changes of the spine. IMPRESSION: 1. Allowing for degradation from respiratory motion artifact, no central pulmonary embolus. Evaluation of segmental and subsegmental pulmonary arteries limited. 2. Extensive bandlike opacities dependently in the lower lobes with lower lobe volume loss and lower lobe predominant bronchial wall thickening. This could suggest atelectasis and/or scarring, though an element of chronic aspiration cannot be excluded. 3. Suggestion of cirrhosis. Electronically signed by: Александр Pitt M.D. 10/06/2017 6:42 PM ABD/PELVIS NO IV OR ORAL CONT CLINICAL HISTORY: 61 years-old Male presenting with R flank pain. TECHNIQUE: Multidetector CT of the abdomen and pelvis was performed without the use of intravenous contrast. IV contrast: None. A dose lowering technique was used consistent with the principles of ALARA (as low as reasonably achievable). COMPARISON: None. CT DOSE (mGy.cm): The estimated cumulative dose is 460.09 mGy.cm. FINDINGS: Commercial Analyst topogram: Excreted contrast in the urinary bladder. Lung bases: Extensive dependent peribronchovascular consolidation in the lower lobes, left greater than right. Coronary artery calcification. Normal heart size. No pericardial or pleural effusion. Few subcentimeter axillary lymph nodes noted most prominently on the left. Liver: Nodular contour of the liver suggests underlying cirrhosis. Biliary: No gross biliary ductal dilatation allowing for noncontrast technique. Normal gallbladder. Pancreas: Normal noncontrast appearance. Spleen: Normal noncontrast appearance. Splenule noted. Adrenal glands: Normal noncontrast appearance. Kidneys and ureters: Kidneys demonstrate excretion of prior intravenous contrast bilaterally, which limits evaluation for renal calculi. Within this limitation, no calculi are evident. No hydronephrosis. Normal ureters. Bladder: Excreted contrast noted in the urinary bladder with a urinary diverticulum contained within the right inguinal canal. Pelvic organs: Prostate enlargement likely secondary to benign prostatic hyperplasia. Bowel: Moderate stool burden in the rectum. Moderate stool burden also noted in the transverse colon with postsurgical changes of right hemicolectomy. The ileocolic anastomosis in the anterior mid abdomen appears widely patent. No bowel obstruction. Distal small bowel is contained within multiple adjacent midline ventral incisional hernias. No associated small bowel wall thickening or fluid to suggest strangulation. Peritoneal cavity: No free fluid or intraperitoneal gas. Lymph nodes: No gross lymphadenopathy allowing for noncontrast technique. Vasculature: Atherosclerosis of the normal caliber abdominal aorta. Abdominal wall: Multiple midline ventral hernias as detailed above. Right inguinal hernia. Musculoskeletal: Normal. IMPRESSION: 1. Allowing for the presence of excreted contrast in the renal collecting systems, no evidence of nephrolithiasis. No hydronephrosis. 2. Postsurgical changes of right hemicolectomy with grossly patent ileocolic anastomosis. 3. Multiple midline ventral hernias containing small bowel. No bowel obstruction. 4. Bladder containing right inguinal hernia. 5. Suspected cirrhosis. 6. Extensive peribronchovascular dependent consolidation in the lower lobes, left greater than right. This could represent extensive atelectasis or aspiration. Electronically signed by: Александр Pitt M.D. 10/06/2017 9:24 PM (LIVER) ABDOMEN LIMITED CLINICAL HISTORY: r/o cholecystitis abnormal CT exam TECHNIQUE: Ultrasound COMPARISON STUDY: CT abdomen dated 10/06/2017 FINDINGS: Moderately heterogeneous liver. Components of fatty infiltration and potentially early cirrhotic change. And appendix are normal. Common bile duct 4 mm. Contracted gallbladder. Potential debris within the gallbladder. Poor visibility of the pancreas. IMPRESSION: 1. Findings of early hepatic cirrhosis. 2. Fatty infiltration of liver. 3. Contracted gallbladder with a trace amount of gallbladder debris. 4. Normal caliber bile duct. Consultations: ID Dr. Adams Pending Studies/Follow-Up: Please refer to hospital course below. Medication Reconciliation New Medications: Levofloxacin (Levofloxacin) 500 Mg Tab 500 MG PO DAILY@11 for 1 Day, #1 TAB 0 Refills Naproxen (Naproxen) 250 Mg Tab 250 MG PO BID for 15 Days, #30 TAB 1 Refill WITH FULL STOMACH ALWAYS Continued Medications: Aspirin (Aspirin Ec) 81 Mg Tab 81 MG PO DAILY Atorvastatin (Lipitor) 20 Mg Tab 20 MG PO DAILY, TAB Glimepiride (Glimepiride) 1 Mg Tab 1 TAB PO DAILY for 30 Days, #30 TAB 5 Refills Lisinopril (Zestril) 5 Mg Tab 5 MG PO, TAB Metformin Hcl (Glucophage) 500 Mg Tab 500 MG PO BID, TAB Metoprolol Succ (Toprol Xl) (Toprol-Xl) 25 Mg Tabcr 25 MG PO DAILY, #30 TAB Admission Information HPI (per Admitting provider): CHIEF COMPLAINT: Right flank pain, cough, and shortness of breath. HISTORY OF PRESENT ILLNESS: History obtained from patient and records. Medical history significant for metastatic colon cancer sp surgery and chemotherapy, hx tumor cirrhosis, chronic anemia (baseline hemoglobin of 12), History of chronic systolic heart failure secondary to non-ischemic cardiomyopathy (chemotherapy) EF 35-40% in April 2017. hypertension, GERD, DM2 on oral medications. Two months hx of dry cough sx, occasional coughing with meals and water. Central achy chest pain today with shortness of breath and achy right flank pain. Patient denies hematuria.. No fever, some chills. CT of chest showed no central PE, extensive bilateral opacities on the lower lobes with predominant bronchial wall thickening, atelectasis vs possible chronic aspiration. cirrhosis. Patient received Zosyn in the Emergency Room. MEDICAL HISTORY: As above. A 2D echo from April 2017 showed moderate diffuse LV hypokinesis, concentric LVH, EF 35%-40%, abnormal LV diastolic dysfunction, PASP of 25-30 mm. Most recent [facility] Oncology visit was on 09/17/2017. As per note, limited options for progressive disease due to cardiac dysfunction. Consideration for home hospice if condition deteriorates. PAST SURGICAL HISTORY: He has had A-port placement, colectomy. HOME MEDICATIONS: Include aspirin, Lipitor, glimepiride, Zestril, metformin, Toprol. ALLERGIES: ALLERGIC TO OXALIPLATIN. FAMILY HISTORY: Colon cancer. PERSONAL AND SOCIAL HISTORY: Nonsmoker. No chronic intake of alcoholic beverages. Lives alone, brother lives close by. REVIEW OF SYSTEMS: As per HPI, all 10 systems reviewed, all others are negative. Physical Exam (per Admitting): VITAL SIGNS: Blood pressure was noted to be 140/80, pulse rate 106, RR 18, temperature 37, sats 95 on room air. GENERAL: Noted to be uncomfortable. No respiratory distress. SKIN: Pallor, warm. HEENT: Pale palpebral conjunctivae. No ptosis. Dry buccal mucosa. NECK: Supple. No tenderness. CHEST: Decreased breath sounds. No tenderness. HEART: Tachycardic. No murmur. ABDOMEN: Soft. NT BACK: Tender right flank. EXTREMITIES: No edema, no tenderness. No gross deformity. NEUROLOGIC: Coherent. No gross focality. Hospital Course FEVER, LIKELY FROM: COUGH, COMM ACQUIRED PNA from TUMOR FEVER? COLON CA WITH LIVER METS - CXR bilateral lower lobe infiltrates Speech therapist has ruled out aspiration - urine culture: negative blood culture 2 sets x2: negative - patient was placed initially on Levaquin clinically improved on exam but was having persistent fever spikes repeat cultures drawn, negative ID consulted, fever felt to be from underlying CA with liver mets Naproxen 250mg BID ordered, no fever since then clinically improved on discharge, finish 1 more day of Levaquin PO to complete 7 day treatment continue Naproxen PO BID until re-evaluated by PCP this week ff up with Dr. Marks as scheduled - LFT slightly increased Liver US contracted GB, early cirrhosis, fatty liver no Espino's sign LFTs improving, monitor Metastatic colon cancer, with Liver Mets status post surgery/chemotherapy - follows with Dr. Marks (+) disease progression as per outpatient records has tried multiple chemo agents, possible hospice referral as per Oncologist scheduled to ff up with Dr. Marks , may need to see him sooner Hypertension, stable. DM2, on oral meds well controlled as of recent outpatient hemoglobin A1c of 6.6 last August 2017. Chronic systolic heart failure secondary to non-ischemic cardiomyopathy - euvolemic Chronic anemia - hemoglobin baseline. PLAN: d/c home ff up with PCP in 3-5 days ff up with Dr. Marks as scheduled Total time spent on discharge = 30 minutes This includes examination of the patient, discharge planning, medication reconciliation, and communication with other providers. Discharge Instructions Discharge Instructions Date of Service Oct 12, 2017. Admission Reason for Admission: Sepsis Discharge Discharge Diagnosis / Problem: PNEUMONIA, FEVER Discharge Goals Goal(s): Diagnostic testing, Therapeutic intervention Activity Recommendations Activity Limitations: as noted below (INCREASE ACTIVITY GRADUALLY TOLERATED) Lifting Limitations: until after follow-up appointment Exercise/Sports Limitations: until after follow-up appointment . Instructions / Follow-Up Instructions / Follow-Up PLEASE REVIEW YOUR NEW MEDICATION LIST AND FOLLOW INSTRUCTIONS CAREFULLY. ALWAYS TAKE NAPROXEN WITH A FULL STOMACH. DRINK PLENTY OF FLUIDS. TAKE YOGURT OR PROBIOTIC DAILY. CALL PRIMARY CARE PHYSICIAN OR RETURN TO ER IMMEDIATELY IF WITH WORSENING SYMPTOMS, INCREASING COUGH, SHORTNESS OF BREATH, FEVER, NAUSEA, ABDOMINAL PAIN, POOR APPETITE, WEIGHT LOSS. FOLLOW UP WITH PRIMARY CARE PHYSICIAN IN 3-5 DAYS (CLINIC WILL BE CALLING YOU FOR THE APPOINTMENT SCHEDULE). FOLLOW UP WITH DR. MARKS- ONCOLOGIST SCHEDULED. Current Hospital Diet Patient's current hospital diet: Diabetes Type 2 Diet, AHA Diet (Heart Healthy) Discharge Diet Recommended Diet: AHA Diet (Heart Healthy), Diabetes Type 2 Diet Procedures Procedures Performed: CT SCAN OF THE CHEST AND ABDOMEN, LIVER US Pending Studies Studies pending at discharge: no Medical Emergencies . Who to Call and When: Medical Emergencies: If at any time you feel your situation is an emergency, please call 911 immediately. . Non-Emergent Contact Non-Emergency issues call your: Primary Care Provider, Oncologist Call Non-Emergent contact if: you have a fever, your pain is not controlled, your pain is worsening, you have any medication questions . . "Provider Documentation" section prepared by Gato Damian. . VTE Core Measure Inpt VTE Proph given/why not?: Enoxaparin (Lovenox)SQ
== END 2017-10-12 14:01 | disposition home or self-care (01) | DRG 435 ==
LOC: C.EDB 15:18 → C.4E 19:53 → ENRESERV 20:33
PROVIDERS: ADMIT Internal Medicine; ATTEND Internal Medicine
DX: C78.7 Secondary malignant neoplasm of liver and intrahepatic bile duct (principal); R50.81 Fever presenting with conditions classified elsewhere; J18.9 Pneumonia, unspecified organism; I50.22 Chronic systolic (congestive) heart failure; D64.9 Anemia, unspecified; E11.9 Type 2 diabetes mellitus without complications; I10 Essential (primary) hypertension; Z51.81 Encounter for therapeutic drug level monitoring; Z79.899 Other long term (current) drug therapy; Z79.84 Long term (current) use of oral hypoglycemic drugs; Z79.82 Long term (current) use of aspirin; Z85.038 Personal history of other malignant neoplasm of large intestine; Z92.21 Personal history of antineoplastic chemotherapy; Z98.890 Other specified postprocedural states; Z80.0 Family history of malignant neoplasm of digestive organs

== ENCOUNTER 2017-11-04 12:32 | Emergency (ER) | payer OTHER ==
[~2017-11-04] VITALS: Ht 175.3 cm; Wt 72.4 kg
[~2017-11-04 12:32] MED LIST changes: -CMP/10 PO; -DOCU-94 PO; -FENO160T4 PO; +LVQ500 PO; +NPR250 PO; -ONDA-63 PO; -XLTOPS OPB
[2017-11-04 12:37] VITALS: BP 124/79; PULSE 121; TEMP 37; O2SAT 95; Ht 175.3 cm; Wt 72.4 kg
== END 2017-11-04 13:18 | disposition left against medical advice (07) ==
LOC: C.EDB 12:35
DX: R10.31 Right lower quadrant pain (principal); R10.11 Right upper quadrant pain